=== PATIENT | male | born 1935 | race Caucasian/White ===

== ENCOUNTER 2017-11-04 09:22 | Emergency (ER) | payer OTHER ==
[~2017-11-04] VITALS: Ht 177.8 cm; Wt 102.1 kg
[~2017-11-04 09:22] MED LIST: ALLO100; ALLO300 PO; ASPI325 PO; ATOR20 PO; CALCIT950 PO; CEPH500 PO; CRUTCH2 XX; CYAN1000 PO; ERGO50000 PO; ESOM20 PO; HYDMOR4 PO; IRBE150 PO; IRBE75; IRBHYD150 PO; LEVO750 PO; MELO7.5 PO; METO25ER PO; NIFE30ER PO; NITR.4SL SL; OXYACE5T PO; Omega 3 1,0001 EACH PO; POTA10T PO; PRED20 PO; PROM25 PO; Percocet 5-3251 EACH PO; SERT25 PO; TADA10TA; VYTORIN; WARF5 PO
[2017-11-04] MEDS ORDERED: BENZ100A PO (10:31)
== END 2017-11-04 10:47 | disposition home or self-care (01) ==
LOC: ER 09:22
DX: R05 Cough (principal); R06.02 Shortness of breath; I48.91 Unspecified atrial fibrillation; J44.9 Chronic obstructive pulmonary disease, unspecified; I10 Essential (primary) hypertension; I25.10 Atherosclerotic heart disease of native coronary artery without angina pectoris; E78.5 Hyperlipidemia, unspecified; Z88.0 Allergy status to penicillin; Z88.5 Allergy status to narcotic agent; Z79.899 Other long term (current) drug therapy; Z79.82 Long term (current) use of aspirin; Z87.891 Personal history of nicotine dependence
CPT/HCPCS: 71046

== ENCOUNTER 2018-11-02 13:31 | Emergency (ER) | payer OTHER ==
[~2018-11-02] VITALS: Ht 182.9 cm; Wt 90.7 kg
[~2018-11-02 13:31] MED LIST changes: +BENZ100A PO; -CYAN1000 PO; +CYAN500 PO; -ERGO50000 PO; +IRBESARTAN-HCT1 EACH PO; -IRBHYD150 PO; +VITAMIN D5000 UNIT PO
[2018-11-02 14:02] LABS: BASOPHILS ABSOLUTE AUTO 0.02 K/mm3 (0.00-0.23); BASOPHILS PERCENT AUTO 0 % (0-2); EOSINOPHILS ABSOLUTE AUTO 0.09 K/mm3 (0.00-0.68); EOSINOPHILS PERCENT AUTO 1 % (0-6); Hematocrit 37.1 % (37.0-53.0); Hemoglobin 12.9 g/dL (13.5-17.5); IMMATURE GRAN ABSOLUTE AUTO 0.03 K/mm3 (0.00-0.10); IMMATURE GRAN PERCENT AUTO 0 % (0-1); LYMPHOCYTES ABSOLUTE AUTO 1.32 K/mm3 (0.84-5.20); LYMPHOCYTES PERCENT AUTO 17 % (21-46); MONOCYTES ABSOLUTE AUTO 0.66 K/mm3 (0.16-1.47); MONOCYTES PERCENT AUTO 8 % (4-13); Mean Corpuscular HGB 33.3 pg (26.0-34.0); Mean Corpuscular HGB Conc 34.8 g/dL (31.5-36.5); Mean Corpuscular Volume 96 fL (80-100); Mean Platelet Volume 10.6 fL (9.1-12.4); NEUTROPHILS ABSOLUTE AUTO 5.89 K/mm3 (1.96-9.15); NEUTROPHILS PERCENT AUTO 74 % (41-73); Platelet Count 126 K/mm3 (150-400); RDW Coefficient Variation 13.8 % (11.7-14.2); RDW Standard Deviation 48.8 fL (35.1-46.3); Red Blood Cell Count 3.87 M/mm3 (4.30-5.90); White Blood Cell Count 8.01 K/mm3 (4.00-11.30)
[2018-11-02 14:31] LABS: Albumin, Blood 3.8 g/dL (3.4-5.0); Albumin/Globulin Ratio 1.6 (0.8-1.8); Bilirubin, Total 1.5 mg/dL (0.1-1.0); Bun/Creatinine Ratio 24.4 (12.0-20.0); Calcium, Blood 8.8 mg/dL (8.5-10.1); Creatinine, Blood 1.23 mg/dL (0.60-1.20); Globulin, Blood 2.4 g/dL (2.2-4.0); Potassium, Blood 3.7 mmol/L (3.5-5.5); Total Protein, Blood 6.2 g/dL (6.4-8.2)
[2018-11-02] MEDS ORDERED: METF500C PO (16:21)
[2018-11-02] MEDS ORDERED: OXYC10TA19 PO (16:22)
[2018-11-02] MEDS ORDERED: CLOP75 PO (16:22)
[2018-11-02] MEDS ORDERED: FURO20 PO (16:23)
== END 2018-11-02 19:30 | disposition short-term general hospital (02) ==
LOC: ER 13:31
PROVIDERS: Emergency Medicine
DX: S00.03XA Contusion of scalp, initial encounter (principal); G62.9 Polyneuropathy, unspecified; W01.198A Fall on same level from slipping, tripping and stumbling with subsequent striking against other object, initial encounter; Z88.0 Allergy status to penicillin; Z88.5 Allergy status to narcotic agent; Z79.899 Other long term (current) drug therapy; Z79.82 Long term (current) use of aspirin; I48.91 Unspecified atrial fibrillation; Z87.891 Personal history of nicotine dependence
CPT/HCPCS: 36415; 70450; 72125; 72141; 80053; 84484; 85025; 93005; 93010; 96374; 96375; 96376; 99285-25; J1170; J2405

== ENCOUNTER 2019-01-18 12:39 | Emergency (ER) | payer OTHER ==
[~2019-01-18] VITALS: Ht 177.8 cm; Wt 84.8 kg
[~2019-01-18 12:39] MED LIST changes: +CLOP75 PO; +FURO20 PO; +METF500C PO; +OXYC10TA19 PO
[2019-01-18 13:25] LABS: BASOPHILS ABSOLUTE AUTO 0.02 K/mm3 (0.00-0.23); BASOPHILS PERCENT AUTO 0 % (0-2); EOSINOPHILS ABSOLUTE AUTO 0.12 K/mm3 (0.00-0.68); EOSINOPHILS PERCENT AUTO 2 % (0-6); Hematocrit 36.7 % (37.0-53.0); Hemoglobin 12.4 g/dL (13.5-17.5); IMMATURE GRAN ABSOLUTE AUTO 0.03 K/mm3 (0.00-0.10); IMMATURE GRAN PERCENT AUTO 0 % (0-1); LYMPHOCYTES ABSOLUTE AUTO 0.79 K/mm3 (0.84-5.20); LYMPHOCYTES PERCENT AUTO 11 % (21-46); MONOCYTES ABSOLUTE AUTO 0.56 K/mm3 (0.16-1.47); MONOCYTES PERCENT AUTO 8 % (4-13); Mean Corpuscular HGB 32.5 pg (26.0-34.0); Mean Corpuscular HGB Conc 33.8 g/dL (31.5-36.5); Mean Corpuscular Volume 96 fL (80-100); Mean Platelet Volume 10.1 fL (9.1-12.4); NEUTROPHILS ABSOLUTE AUTO 5.53 K/mm3 (1.96-9.15); NEUTROPHILS PERCENT AUTO 79 % (41-73); Platelet Count 152 K/mm3 (150-400); RDW Coefficient Variation 14.4 % (11.7-14.2); RDW Standard Deviation 50.5 fL (35.1-46.3); Red Blood Cell Count 3.82 M/mm3 (4.30-5.90); White Blood Cell Count 7.05 K/mm3 (4.00-11.30)
[2019-01-18 13:58] LABS: Source, Urine Clean Catch
[2019-01-18 14:01] LABS: Bilirubin, Urine Neg (Neg); Blood, Urine 5+ (Neg); Glucose Qualitative, Urine Neg (Neg); Ketones, Urine Neg (Neg); Leukocyte Esterase, Urine 3+ (Neg); Nitrite, Urine Neg (Neg); Protein, Urine 2+ (Neg); Specific Gravity, Urine 1.015 (1.003-1.022); Urobilinogen, Urine NORM (Normal)
[2019-01-18 14:08] LABS: Appearance, Urine Clear (Clear); Bacteria Few /hpf; Color, Urine Yellow (P-Yellow); Red Blood Cells, Urine 25-50 /hpf (0-2); Squamous Epithelial Cells Not Seen /hpf (Few); White Blood Cells, Urine 25-50 /hpf (0-5)
[2019-01-18 14:58] LABS: Alanine Aminotransfer (ALT/SGP 21 U/L (12-78); Albumin, Blood 3.4 g/dL (3.4-5.0); Albumin/Globulin Ratio 1.2 (0.8-1.8); Alk Phos 61 U/L (50-136); Anion Gap 9 mmol/L (6-16); Aspartate Aminotrans (AST/SGOT 12 U/L (12-37); Bilirubin, Total 0.7 mg/dL (0.1-1.0); Blood Urea Nitrogen 26 mg/dL (8-24); Bun/Creatinine Ratio 24.1 (12.0-20.0); CO2, Blood 24 mmol/L (21-32); Chloride, Blood 102 mmol/L (98-108); Creatinine, Blood 1.08 mg/dL (0.60-1.20); Globulin, Blood 2.8 g/dL (2.2-4.0); Glomerular Filtration Rate >60 (60-); Glucose, Blood 114 mg/dL (70-99); Potassium, Blood 4.1 mmol/L (3.5-5.5); Sodium, Blood 135 mmol/L (136-145); Total Protein, Blood 6.2 g/dL (6.4-8.2)
[2019-01-18] MEDS ORDERED: Zofran4 MG PO (16:08)
[2019-01-18] MEDS ORDERED: Flomax0.4 MG PO ×2 (16:08→16:39)
[2019-01-18] MEDS ORDERED: Percocet 5-3251 EACH PO ×2 (16:08→16:39)
[2019-01-18] MEDS ORDERED: Cipro500 MG PO ×2 (16:10→16:39)
[2019-01-18] MEDS ORDERED: ONDA4ODT MM (16:39)
== END 2019-01-18 17:34 | disposition home or self-care (01) ==
LOC: ER 12:39
PROVIDERS: Emergency Medicine
DX: N13.2 Hydronephrosis with renal and ureteral calculous obstruction (principal); Z88.0 Allergy status to penicillin; Z88.5 Allergy status to narcotic agent; Z79.899 Other long term (current) drug therapy; Z79.82 Long term (current) use of aspirin; Z79.84 Long term (current) use of oral hypoglycemic drugs; I48.91 Unspecified atrial fibrillation; Z87.891 Personal history of nicotine dependence
CPT/HCPCS: 36415; 74176; 80053; 81001; 85025; 87077; 87086; 87186; 99284-25; J2405; J3010; J7030

== ENCOUNTER 2019-09-27 11:14 | Emergency (ER) | payer OTHER ==
[~2019-09-27] VITALS: Ht 177.8 cm; Wt 81.7 kg
[~2019-09-27 11:14] MED LIST changes: +Cipro500 MG PO; +Flomax0.4 MG PO; +ONDA4ODT MM; +Zofran4 MG PO
[2019-09-27] MEDS ORDERED: OXYC10TA19 PO (12:16)
== END 2019-09-27 12:40 | disposition home or self-care (01) ==
LOC: ER 11:14
DX: S83.91XA Sprain of unspecified site of right knee, initial encounter (principal); S73.101A Unspecified sprain of right hip, initial encounter; M17.11 Unilateral primary osteoarthritis, right knee; Z88.0 Allergy status to penicillin; Z88.5 Allergy status to narcotic agent; Z79.82 Long term (current) use of aspirin; Z79.84 Long term (current) use of oral hypoglycemic drugs; Z79.899 Other long term (current) drug therapy; I48.91 Unspecified atrial fibrillation; Z87.891 Personal history of nicotine dependence; W01.0XXA Fall on same level from slipping, tripping and stumbling without subsequent striking against object, initial encounter
CPT/HCPCS: 73502; 73562-RT; 99283-25

== ENCOUNTER 2020-09-15 06:32 | Day surgery (SDC) | payer OTHER ==
[~2020-09-15] VITALS: Ht 177.8 cm; Wt 86.0 kg
== END 2020-09-15 09:51 | disposition home or self-care (01) ==
LOC: ORSCSDS 06:32
PROC: 01N54ZZ Release Median Nerve, Percutaneous Endoscopic Approach (ICD-10-PCS; principal; 2020-09-15)
PROC: 01N40ZZ Release Ulnar Nerve, Open Approach (ICD-10-PCS; principal; 2020-09-15)
DX: G56.21 Lesion of ulnar nerve, right upper limb (principal); G56.01 Carpal tunnel syndrome, right upper limb; I10 Essential (primary) hypertension; I48.91 Unspecified atrial fibrillation; I25.10 Atherosclerotic heart disease of native coronary artery without angina pectoris; I25.2 Old myocardial infarction; G47.33 Obstructive sleep apnea (adult) (pediatric); K21.9 Gastro-esophageal reflux disease without esophagitis; E78.5 Hyperlipidemia, unspecified; Z79.899 Other long term (current) drug therapy; Z79.82 Long term (current) use of aspirin
CPT/HCPCS: 82947; J0171; J0690; J1100; J2250; J2370; J2405; J2704; J3010

== ENCOUNTER → 2021-04-01 | Outpatient (CLI) | payer OTHER | LOC: LAB SHORT 09:30 | DX: E11.9 Type 2 diabetes mellitus without complications (principal); Z88.0 Allergy status to penicillin; Z88.5 Allergy status to narcotic agent | CPT/HCPCS: 82043 ==

== ENCOUNTER 2022-10-31 09:27 | Day surgery (SDC) | payer OTHER ==
[~2022-10-31] VITALS: Ht 177.8 cm; Wt 77.1 kg
[2022-10-31] MEDS ORDERED: GABA100 (09:53)
[2022-10-31] MEDS ORDERED: FISH OIL 1,2001 EAC7 (09:53)
[2022-10-31] MEDS ORDERED: ASPI81CH (09:53)
[2022-10-31 12:45] VITALS: BP 110/66
== END 2022-10-31 12:19 | disposition home or self-care (01) ==
LOC: ORSCSDS 09:27
PROVIDERS: Internal Medicine Gastroenterology
PROC: 0DBK8ZX Excision of Ascending Colon, Via Natural or Artificial Opening Endoscopic, Diagnostic (ICD-10-PCS; principal; 2022-10-31 11:00)
PROC: 0DBL8ZX Excision of Transverse Colon, Via Natural or Artificial Opening Endoscopic, Diagnostic (ICD-10-PCS; principal; 2022-10-31 11:00)
DX: R93.3 Abnormal findings on diagnostic imaging of other parts of digestive tract (principal); D12.2 Benign neoplasm of ascending colon; D12.3 Benign neoplasm of transverse colon; K57.30 Diverticulosis of large intestine without perforation or abscess without bleeding; N18.31 Chronic kidney disease, stage 3a; K52.9 Noninfective gastroenteritis and colitis, unspecified; G47.33 Obstructive sleep apnea (adult) (pediatric); E11.9 Type 2 diabetes mellitus without complications; I48.0 Paroxysmal atrial fibrillation; I25.10 Atherosclerotic heart disease of native coronary artery without angina pectoris; E78.5 Hyperlipidemia, unspecified; Z79.82 Long term (current) use of aspirin; Z79.899 Other long term (current) drug therapy
CPT/HCPCS: 88305; J2704; J7120

== ENCOUNTER 2023-06-08 16:38 | Observation (INO) | payer OTHER ==
[~2023-06-08] VITALS: Ht 177.8 cm; Wt 74.8 kg
[~2023-06-08 16:38] MED LIST changes: +ASPI81CH; -ATOR20 PO; +ATOR40TA PO; +FISH OIL 1,2001 EAC7; -FURO20 PO; +GABA100
[2023-06-08 17:35] LABS: Calcium, Ionized (POC) 1.18 mmol/L (1.10-1.46); Chloride (POC) 102 mmol/L (98-108); Creatinine (POC) 2.1 mg/dL (0.8-1.3); Glucose (ISTAT POC) 136 mg/dL (70-99); Hemoglobin (POC) 11.6 g/dL (13.5-17.5); Potassium (POC) 4.2 mmol/L (3.5-5.5); Sodium (POC) 138 mmol/L (135-148); Total CO2 (POC) 28 mmol/L (21-32)
[2023-06-08 17:41] LABS: BASOPHILS ABSOLUTE AUTO 0.02 K/mm3 (0.00-0.23); BASOPHILS PERCENT AUTO 0 % (0-2); EOSINOPHILS ABSOLUTE AUTO 0.04 K/mm3 (0.00-0.68); EOSINOPHILS PERCENT AUTO 1 % (0-6); IMMATURE GRAN ABSOLUTE AUTO 0.03 K/mm3 (0.00-0.10); IMMATURE GRAN PERCENT AUTO 0 % (0-1); LYMPHOCYTES ABSOLUTE AUTO 0.98 K/mm3 (0.84-5.20); LYMPHOCYTES PERCENT AUTO 14 % (21-46); MONOCYTES ABSOLUTE AUTO 0.52 K/mm3 (0.16-1.47); MONOCYTES PERCENT AUTO 7 % (4-13); Mean Corpuscular HGB 31.9 pg (26.0-34.0); Mean Corpuscular HGB Conc 33.3 g/dL (31.5-36.5); Mean Corpuscular Volume 96 fL (80-100); Mean Platelet Volume 10.5 fL (9.1-12.4); NEUTROPHILS ABSOLUTE AUTO 5.62 K/mm3 (1.96-9.15); NEUTROPHILS PERCENT AUTO 78 % (41-73); Platelet Count 134 K/mm3 (150-400); RDW Coefficient Variation 14.1 % (11.7-14.2); RDW Standard Deviation 49.5 fL (35.1-46.3); Red Blood Cell Count 3.76 M/mm3 (4.30-5.90); White Blood Cell Count 7.21 K/mm3 (4.00-11.30)
[2023-06-08 17:58] LABS: Albumin, Blood 3.4 g/dL (3.4-5.0); Albumin/Globulin Ratio 1.1 (0.8-1.8); Bilirubin, Total 1.1 mg/dL (0.1-1.0); Bun/Creatinine Ratio 19.2 (12.0-20.0); Calcium, Blood 8.8 mg/dL (8.5-10.1); Creatinine, Blood 1.82 mg/dL (0.60-1.20); Globulin, Blood 3.1 g/dL (2.2-4.0); Potassium, Blood 4.1 mmol/L (3.5-5.5); Total Protein, Blood 6.5 g/dL (6.4-8.2)
[2023-06-08 19:48] LABS: Influenza A, PCR NEGATIVE (NEGATIVE); Influenza B, PCR NEGATIVE (NEGATIVE); Resp Syncytial Virus, PCR NEGATIVE (NEGATIVE); SARS-Cov-2 (COVID-19) PCR, MMC NEGATIVE (NEGATIVE)
[2023-06-08] MEDS ORDERED: Neurontin800 MG PO (19:55)
[2023-06-08 20:21] LABS: Anti-Xa UFH, PHA Monitoring <0.10 IU/mL; International Normalized Ratio 1.09; Prothrombin Time Results 11.4 Sec (9.7-11.5)
[2023-06-08 20:44] LABS: Source, Urine Clean Catch
[2023-06-08 20:47] LABS: Appearance, Urine Clear (Clear); Bilirubin, Urine Neg (Neg); Blood, Urine 2+ (Neg); Glucose Qualitative, Urine Neg (Neg); Ketones, Urine Neg (Neg); Leukocyte Esterase, Urine 3+ (Neg); Nitrite, Urine Neg (Neg); Protein, Urine Neg (Neg); Specific Gravity, Urine 1.015 (1.003-1.022); Urobilinogen, Urine NORM (Normal)
[2023-06-08 20:52] LABS: Color, Urine Pale Yellow (P-Yellow)
[2023-06-08 20:53] LABS: Hyaline Casts 0-2 /lpf (0-2)
[2023-06-08 20:54] LABS: Bacteria Mod /hpf; Squamous Epithelial Cells Rare /hpf (Few)
[2023-06-08 22:54] VITALS: BP 105/88
[2023-06-09 00:17] VITALS: BP 114/54
[2023-06-09 03:50] VITALS: BP 99/53
[2023-06-09 04:03] LABS: Hematocrit 35.1 % (37.0-53.0); Hemoglobin 11.8 g/dL (13.5-17.5); Mean Corpuscular HGB 32.1 pg (26.0-34.0); Mean Corpuscular HGB Conc 33.6 g/dL (31.5-36.5); Mean Corpuscular Volume 95 fL (80-100); Mean Platelet Volume 10.6 fL (9.1-12.4); Platelet Count 115 K/mm3 (150-400); Red Blood Cell Count 3.68 M/mm3 (4.30-5.90); White Blood Cell Count 8.11 K/mm3 (4.00-11.30)
[2023-06-09 04:16] LABS: Bun/Creatinine Ratio 23.4 (12.0-20.0); Creatinine, Blood 1.41 mg/dL (0.60-1.20); Potassium, Blood 3.7 mmol/L (3.5-5.5)
--- NOTE | 2023-06-09 05:41 | NUR ---
END OF SHIFT NOTE: PT IS A/OX4 AND COOPERATIVE WITH CARE. IRREGULAR RYTHM UNDETERMINED ON EKG. PT SPO2 >90% ON RA. NPO WITH Q6 CBGS. CC PLACED FOR PATIENT COMFORT AND ABILITY TO GET SOME REST. PT WHEELCHAIR BOUND AT BASELINE. REDNESS ON COCCYX WITH MEPILEX PLACED TO PREVENT SKIN BREAKDOWN. PT DENIES PAIN OR SOB. NO NEEDS AT THIS TIME. CALL LIGHT IN REACH AND BED IN LOWEST POSITION.
[2023-06-09 07:23] VITALS: BP 106/64
[2023-06-09 09:25] VITALS: BP 103/54
[2023-06-09] MEDS ORDERED: CEFD300 PO (12:09)
[2023-06-09] MEDS ORDERED: FURO20 PO (12:41)
--- NOTE | 2023-06-09 12:47 | NUR ---
Initial palliative care consult: Chase is an 87 year old gentleman who was admitted with chest pain yesterday. He has a history of CAD with stent placement around 2011, CKD stage 3, HTN, HLD, BPH, gout, anemia, nephrolithiasis, DM type 2, depression and LEONID. He is laying in bed with his Danielle and dtr Sharon at the bedside. Requested by staff to assist with completing new POLST form to reflect pt's current wishes. Met with pt and and dtr in room. Discussed POLST form and his wishes. His , Danielle, would also like to update her POLST form. Both Raphael and his chose DNR with limited interventions for their POLST forms. Dtr Sharon signed both POLST forms as Raphael and Danielle requested that she sign. Answered questions about the POLST forms and discussed AD. Dtr Sharon and pt and request to take home AD forms to read and complete at home. Sharon would also like to complete an AD. She lives in [place], so she will go online to see if [place] has a specific AD form or find a generic AD form. After all questions were answered pt and family appreciative of care and assistance with completing forms. Updated nursing and Dr. Kc states he will come sign the POLST. Danielle's POLST sent with Sharon to take to Danielle's PCP to sign. Nursing reports plan is for discharge home today. Nursing will fax a copy of pt's completed POLST to the [facility] POLST registry per pt's request.
[2023-06-09] MEDS ORDERED: NITROGLYCERIN0.4 M3 SL (13:04)
[2023-06-09 13:17] VITALS: BP 93/55
--- NOTE | 2023-06-09 14:49 | NUR ---
DISCHARGE NOTE PT A&OX4, VSS. PT DENIES PAIN. HEP GTT DISCONTINUED PER THIS AM. NS TURNED OFF FOR DISCHARGE. MD ESPARZA IN ROOM THIS AM. PT REFUSED ANGIO, OPTED TO GO HOME, MED MANAGEMENT. MD JEFFERY IN ROOM AFTER LUNCH TO REVIEW DISCHARGE ORDERS. DISCHARGE PAPERWORK REVIEW WITH PATIENT AND FAMILY. NEW MEDICATIONS SENT TO [facility]. BILAT AC IV'S REMOVED. TELEMETRY REMOVED. CONDOM CATH REMOVED. PT HELPED DRESS. PT WHEELED TO PRIVATE VEHICLE WITH BELONGINGS, DAUGHTER, AND .
== END 2023-06-09 13:23 | disposition home or self-care (01) ==
LOC: ER 16:38 → PCU 19:39
PROVIDERS: Emergency Medicine; Nurse Practitioner Acute Care; Student in an Organized Health Care Education/Training Program; ADMIT Internal Medicine
DX: I25.118 Atherosclerotic heart disease of native coronary artery with other forms of angina pectoris (principal); I12.9 Hypertensive chronic kidney disease with stage 1 through stage 4 chronic kidney disease, or unspecified chronic kidney disease; E11.22 Type 2 diabetes mellitus with diabetic chronic kidney disease; N18.30 Chronic kidney disease, stage 3 unspecified; G47.33 Obstructive sleep apnea (adult) (pediatric); F32.9 Major depressive disorder, single episode, unspecified; E78.5 Hyperlipidemia, unspecified; M10.9 Gout, unspecified; D50.9 Iron deficiency anemia, unspecified; N40.0 Benign prostatic hyperplasia without lower urinary tract symptoms; N17.9 Acute kidney failure, unspecified; I48.0 Paroxysmal atrial fibrillation; E11.40 Type 2 diabetes mellitus with diabetic neuropathy, unspecified; Z79.82 Long term (current) use of aspirin; Z79.899 Other long term (current) drug therapy; Z99.89 Dependence on other enabling machines and devices; Z88.5 Allergy status to narcotic agent; Z88.0 Allergy status to penicillin
CPT/HCPCS: 0241U; 36415; 71045; 80047; 80048; 80053; 81001; 82947; 83690; 83735; 83880; 84484; 85014; 85025; 85027; 85520; 85610; 85730; 87086; 93005; 93010; 93306; 96365; 96366; 99285-25; A9270; G0378; J1644; J7030

== ENCOUNTER 2023-11-08 03:43 | Inpatient (IN) | payer OTHER ==
[~2023-11-08] VITALS: Ht 177.8 cm; Wt 85.2 kg
[2023-11-08] VITALS (10 sets, daily range): BP systolic 76–139; BP diastolic 46–111
[~2023-11-08 03:43] MED LIST changes: -ASPI81CH; +ASPI81CH PO; +CEFD300 PO; +FURO20 PO; +NITROGLYCERIN0.4 M3 SL; +Neurontin800 MG PO
[2023-11-08] MEDS ORDERED: NS 1,000 ML IV SCH ×2 (04:55→09:00)
[2023-11-08] MEDS ORDERED: FentaNYL Citrate 50 MCG/ML 2 ML Injection IV ONE (05:00)
[2023-11-08 05:02] LABS: Source, Urine Foley catheter
[2023-11-08 05:04] LABS: BASOPHILS ABSOLUTE AUTO 0.01 K/mm3 (0.00-0.23); BASOPHILS PERCENT AUTO 0 % (0-2); EOSINOPHILS ABSOLUTE AUTO 0.05 K/mm3 (0.00-0.68); EOSINOPHILS PERCENT AUTO 1 % (0-6); Hematocrit 35.5 % (37.0-53.0); Hemoglobin 11.5 g/dL (13.5-17.5); IMMATURE GRAN ABSOLUTE AUTO 0.02 K/mm3 (0.00-0.10); IMMATURE GRAN PERCENT AUTO 0 % (0-1); LYMPHOCYTES ABSOLUTE AUTO 0.64 K/mm3 (0.84-5.20); LYMPHOCYTES PERCENT AUTO 10 % (21-46); MONOCYTES ABSOLUTE AUTO 0.59 K/mm3 (0.16-1.47); MONOCYTES PERCENT AUTO 9 % (4-13); Mean Corpuscular HGB 32.4 pg (26.0-34.0); Mean Corpuscular HGB Conc 32.4 g/dL (31.5-36.5); Mean Corpuscular Volume 100 fL (80-100); Mean Platelet Volume 10.4 fL (9.1-12.4); NEUTROPHILS ABSOLUTE AUTO 5.22 K/mm3 (1.96-9.15); NEUTROPHILS PERCENT AUTO 80 % (41-73); Platelet Count 120 K/mm3 (150-400); RDW Coefficient Variation 14.2 % (11.7-14.2); RDW Standard Deviation 52.5 fL (35.1-46.3); Red Blood Cell Count 3.55 M/mm3 (4.30-5.90); White Blood Cell Count 6.53 K/mm3 (4.00-11.30)
[2023-11-08 05:36] LABS: Albumin, Blood 3.6 g/dL (3.4-5.0); Albumin/Globulin Ratio 1.2 (0.8-1.8); Bilirubin, Total 1.6 mg/dL (0.1-1.0); Bun/Creatinine Ratio 20.7 (12.0-20.0); Calcium, Blood 8.6 mg/dL (8.5-10.1); Creatinine, Blood 1.79 mg/dL (0.60-1.20); Globulin, Blood 2.9 g/dL (2.2-4.0); Potassium, Blood 4.5 mmol/L (3.5-5.5); Total Protein, Blood 6.5 g/dL (6.4-8.2)
[2023-11-08 05:55] LABS: Appearance, Urine Cloudy (Clear); Bilirubin, Urine Neg (Neg); Blood, Urine 5+ (Neg); Color, Urine Amber (P-Yellow); Glucose Qualitative, Urine Neg (Neg); Ketones, Urine Neg (Neg); Leukocyte Esterase, Urine 2+ (Neg); Nitrite, Urine Pos (Neg); Protein, Urine 3+ (Neg); Urobilinogen, Urine NORM (Normal)
[2023-11-08 06:01] LABS: Bacteria Many /hpf; Red Blood Cells, Urine TNTC /hpf (0-2); Squamous Epithelial Cells Few /hpf (Few); White Blood Cells, Urine 25-50 /hpf (0-5)
[2023-11-08] MEDS ORDERED: CefTRIAXone Sodium 1,000 MG in NS 50 ML IV ONE (06:05)
[2023-11-08] MEDS ORDERED: CEPH500 PO (06:06)
[2023-11-08] MEDS ORDERED: Magnesium Hydroxide Conc 10 ML UDC PO PRN (08:10)
[2023-11-08] MEDS ORDERED: Acetaminophen 325 MG TABLET PO PRN (08:15)
[2023-11-08 09:06] LABS: International Normalized Ratio 1.03
[2023-11-08] MEDS ORDERED: NS 250 ML IV ONE (14:39)
[2023-11-08] MEDS ORDERED: Midazolam HCl 1MG / ML 2ML Vial ONE (17:15)
[2023-11-08] MEDS ORDERED: NS 500 ML IV ONE (17:16)
[2023-11-08] MEDS ORDERED: FentaNYL Citrate 50 MCG/ML 2 ML Injection ONE (17:16)
--- NOTE | 2023-11-08 18:37 | NUR ---
SHIFT SUMMARY PATIENT ADMITTED TO MEDICAL FLOOR WITH HYDRONEPHROSIS. PATIENT TAKEN TO PIANO REFINISHER AT END OF SHIFT FOR NEPHROSTOMY TUBE PLACEMENT. PATIENT'S MENTATION IMPROVED THROUGHOUT THE SHIFT. FLUIDS INFUSING AND PATIENT NPO FOR PROCEDURE. DAUGHTER AND PRESENT EARLIER IN SHIFT. DAUGHTER UPDATED VIA PHONE.
[2023-11-08] MEDS ORDERED: Gabapentin 300 MG Cap PO SCH (21:00)
[2023-11-08] MEDS ORDERED: NS 1,000 ML IV ONE (21:20)
[2023-11-08] MEDS ORDERED: IRBESARTAN75 M3 PO (21:40)
[2023-11-08] MEDS ORDERED: KLOR-CON 1010 ME9 PO (21:41)
[2023-11-08] MEDS ORDERED: ALLO300 PO (21:41)
[2023-11-08] MEDS ORDERED: TAMSULOSIN HCL0.4 M1 PO (21:42)
[2023-11-08] MEDS ORDERED: METOPROLOL SUCC25 MG PO (21:43)
--- NOTE | 2023-11-08 23:44 | NUR ---
TRANSFER PATIENT TRANSFERED FROM PCU AT 2355. PATIENT LAYING IN BED, LUNGS BILATERALLY CLEAR, PUPILS REACTIVE, IV 20G ON LEFT FOREARM, PEDAL AND RADIAL PULSE PRESENT AND STRONG. CALL LIGHT WITHIN REACH
[2023-11-09] VITALS (57 sets, daily range): BP systolic 70–128; BP diastolic 42–105
[2023-11-09 03:45] LABS: BASOPHILS ABSOLUTE AUTO 0.01 K/mm3 (0.00-0.23); BASOPHILS PERCENT AUTO 0 % (0-2); EOSINOPHILS PERCENT AUTO 0 % (0-6); Hematocrit 30.9 % (37.0-53.0); Hemoglobin 10.2 g/dL (13.5-17.5); IMMATURE GRAN ABSOLUTE AUTO 0.02 K/mm3 (0.00-0.10); IMMATURE GRAN PERCENT AUTO 0 % (0-1); LYMPHOCYTES PERCENT AUTO 4 % (21-46); MONOCYTES ABSOLUTE AUTO 0.63 K/mm3 (0.16-1.47); MONOCYTES PERCENT AUTO 7 % (4-13); Mean Corpuscular HGB 32.9 pg (26.0-34.0); Mean Corpuscular Volume 100 fL (80-100); NEUTROPHILS ABSOLUTE AUTO 8.32 K/mm3 (1.96-9.15); NEUTROPHILS PERCENT AUTO 89 % (41-73); Platelet Count 105 K/mm3 (150-400); RDW Coefficient Variation 14.6 % (11.7-14.2); RDW Standard Deviation 53.1 fL (35.1-46.3); White Blood Cell Count 9.38 K/mm3 (4.00-11.30)
[2023-11-09 04:06] LABS: Albumin, Blood 2.8 g/dL (3.4-5.0); Bilirubin, Total 0.9 mg/dL (0.1-1.0); Bun/Creatinine Ratio 20.2 (12.0-20.0); Calcium, Blood 7.4 mg/dL (8.5-10.1); Creatinine, Blood 1.88 mg/dL (0.60-1.20); Globulin, Blood 2.8 g/dL (2.2-4.0); Potassium, Blood 4.2 mmol/L (3.5-5.5); Total Protein, Blood 5.6 g/dL (6.4-8.2)
[2023-11-09] MEDS ORDERED: Vancomycin HCL 1,500 MG in NS 250 ML IV ONE (06:00)
--- NOTE | 2023-11-09 06:22 | NUR ---
SHIFT SUMMARY PATIENT STAYED IN BED AND SLEPT FOR A LITTLE WHILE. TEMP WAS 101.2 GAVE TYLENOL CHECKED IN 20 MINUTES DOWN TO 100.4. HAD A NEPHROSTOMY TUBE PLACED ON 11/08/23, HAS VELÁSQUEZ URINE IS ORANGE BROWNISH URINE. DAUGHTER KATINA IS HEALTH PROXY, GRAM POSTIVE COCCI WITH CLUSTERS ROCEPHIN DR. MANRIQUE AWARE SAID ROCEPHIN SCHEDULED IN AM. B/P'S HAS BEEN LOW SBP IN 70-90'S DR. MANRIQUE AWARE SAID TO GIVE 500MLS NS BOLUS AND GAVE ORDER FOR LEVOPHED IF NEEDED. WILL CONTINUE TO MONITOR UNTIL REPORT IS GIVING TO ONCOMING NURSE. CALL LIGHT WITHIN REACH.
[2023-11-09] MEDS ORDERED: NS 500 ML IV SCH (06:30)
[2023-11-09] MEDS ORDERED: Lactated Ringer's 1,000 ML IV SCH (07:00)
--- NOTE | 2023-11-09 07:00 | NUR ---
ASSUMPTION OF CARE PT RECEIVING NS 150ML/HR. HE IS A&OX3 WITH PLEASANT AFFECT. HE IS ON RA, DENIES SOB. SINUS ON MONITOR WITH RATE IN 70S. BP SOFT BUT MAP >65. L NEPHROSTOMY SITE WNL, DRESSING C/D/I. DRAINING THIN RED FLUID. PT C/O MILD L SIDED DISCOMFORT AND DENIES ABDOMINAL DISCOMFORT. VELÁSQUEZ PATENT AND DRAINING TO GRAVITY. BED IN LOW POSITION, BED ALARM ON AND CALL LIGHT WITHIN REACH.
[2023-11-09] MEDS ORDERED: Enoxaparin 40 MG/0.4 ML SYR SC SCH (09:00)
[2023-11-09] MEDS ORDERED: Tamsulosin HCl 0.4 MG Cap PO SCH (09:00)
[2023-11-09] MEDS ORDERED: CefTRIAXone Sodium 1,000 MG in NS 100 ML IV SCH (09:00)
[2023-11-09] MEDS ORDERED: CefTRIAXone Sodium 2,000 MG in NS 100 ML IV SCH (09:00)
[2023-11-09] MEDS ORDERED: Atorvastatin 40 MG Tab PO SCH (09:00)
[2023-11-09] MEDS ORDERED: Aspirin 81 MG Chew PO SCH (09:00)
[2023-11-09] MEDS ORDERED: Lactobacil 2-S.Thermo-Bifido 1 1 Cap PO SCH (09:00)
[2023-11-09] MEDS ORDERED: Clopidogrel Bisulfate 75 MG Tab PO SCH (11:14)
--- NOTE | 2023-11-09 12:45 | NUR ---
PLAVIX ORDER RECEIVED FROM HOSPITALIST TO RESTART PLAVIX. PT EXPRESSED CONCERN REGARDING THINKING DR LANDIS SAID TO NOT TAKE IT ANYMORE. DR LANDIS NOTIFIED AND CONFIRMED PT SHOULD RESTART PLAVIX. ADMINISTERED PER EMAR.
[2023-11-09 14:33] LABS: Bun/Creatinine Ratio 21.6 (12.0-20.0); Calcium, Blood 6.9 mg/dL (8.5-10.1); Creatinine, Blood 1.76 mg/dL (0.60-1.20); Potassium, Blood 4.4 mmol/L (3.5-5.5)
--- NOTE | 2023-11-09 18:07 | NUR ---
SHIFT SUMMARY PT RECEIVING LR 150ML/HR. HE IS A&OX3 WITH PLEASANT AFFECT. HE DOES HAVE INTERMITTENT EPISODES OF CONFUSION BUT IS EASILY REDIRECTABLE. HE ASSISTS WITH CARE ABLE. HE SAT IN THE RECLINER FOR A COUPLE HOURS THIS AFTERNOON AND IS A 2 PERSON ASSIST. HE REMAINS ON RA WITH SPO2 >95%. HE DOES BECOME DYSPNEIC WITH EXCERTION. NSR ON MONITOR WITH RATE IN 70S-80S. BP STABLE THROUGHOUT THE DAY. PT HAS A L NEPHROSTOMY THAT IS DRAINING THIN RED FLUID, BEGINNING TO HAVE SMALL AMOUNT OF YELLOW-TINGED OUTPUT. SHIFT OUTPUT OF 200ML. PT HAD 600ML DARK ORANGE OUTPUT, VELÁSQUEZ REMOVED THIS AFTERNOON. PT'S DAUGHTER AND VISITED THIS AM AND AFTERNOON, UPDATED ON PLAN OF CARE. PT IS PCU STATUS. BED IN LOW POSITION, BED ALARM ON, CALL LIGHT WITHIN REACH.
--- NOTE | 2023-11-09 21:00 | NUR ---
ASSUMED CARE CARE WAS ASSUMED OF PT AT 1900. PT A/O X3-4. ABLE TO ANSWER QUESTIONS APPROPRIATELY. PT ANXIOUS, ENDORSES PAIN TO RUQ/RLQ. REPOSITIONED PT AND MEDICATED PT PER EMAR FOR PAIN. PT ON RA, O2 SATS > 95%. CARDIAC MONITORING REFLECTS NSR, HR 70s. SBP 110s. PIV TO LAC AND JACQUELINE. LR INFUSING @ 150 mL/HR. LEFT NEPHROSTOMY IN PLACE, PATENT AND DRAINING TO GRAVITY. DRESSING C/D/I, DRAINING RED FLUID.
[2023-11-09 22:30] LABS: Vancomycin, Random 11.4 ug/mL
[2023-11-09] MEDS ORDERED: Vancomycin HCL 1,250 MG in NS 250 ML IV SCH (22:56)
[2023-11-10] VITALS (7 sets, daily range): BP systolic 90–129; BP diastolic 45–85
--- NOTE | 2023-11-10 00:19 | NUR ---
TRANSFER NOTE PT TRANSFERED TO PCU 4, REPORT GIVEN TO SAUL HENRY. NO ACUTE CHANGES FROM BEGINNING OF SHIFT. PT A/O X3. PT REMAINED ON RA, O2 SATS > 90%. CARDIAC MONITORING REFLECTS NSR, HR 70s. LEFT NEPHROSTOMY TUBE IN PLACE, CONTINUES TO DRAIN RED FLUID. DRESSING C/D/I. PT INCONTINENT OF URINE. LR INFUSING AT 150 mL/HR.
--- NOTE | 2023-11-10 00:55 | NUR ---
ASSUMPTION OF CARE/TRANSFER TO PCU Pt sleeping, easily arousable to verbal stimuli, oriented to self, location and situation, forgetful, sometimes repeats questions. Spo2 greater than 92% on room air, monitor shows sinus rhythm with occassional PAC's and PVC's, blood pressure stable. Pt denies chest pain or shortness of breath. Left nephrostomy tube site WNL, bloody drainage. Pt incontinent, new breif placed upon arrival to unit. Reddness noted to coccyx/sacral area, blanchable, skin intact, mepilex placed for prevention.
--- NOTE | 2023-11-10 02:01 | NUR ---
THIS RN TO ASSUME CARE FOR PRIMARY NURSE'S BREAK
[2023-11-10 04:10] LABS: BASOPHILS ABSOLUTE AUTO 0.01 K/mm3 (0.00-0.23); BASOPHILS PERCENT AUTO 0 % (0-2); EOSINOPHILS ABSOLUTE AUTO 0.01 K/mm3 (0.00-0.68); EOSINOPHILS PERCENT AUTO 0 % (0-6); Hematocrit 31.3 % (37.0-53.0); Hemoglobin 10.4 g/dL (13.5-17.5); IMMATURE GRAN ABSOLUTE AUTO 0.05 K/mm3 (0.00-0.10); IMMATURE GRAN PERCENT AUTO 1 % (0-1); LYMPHOCYTES ABSOLUTE AUTO 0.85 K/mm3 (0.84-5.20); LYMPHOCYTES PERCENT AUTO 8 % (21-46); MONOCYTES ABSOLUTE AUTO 0.92 K/mm3 (0.16-1.47); MONOCYTES PERCENT AUTO 9 % (4-13); Mean Corpuscular HGB 32.8 pg (26.0-34.0); Mean Corpuscular HGB Conc 33.2 g/dL (31.5-36.5); Mean Corpuscular Volume 99 fL (80-100); Mean Platelet Volume 10.9 fL (9.1-12.4); NEUTROPHILS ABSOLUTE AUTO 8.35 K/mm3 (1.96-9.15); NEUTROPHILS PERCENT AUTO 82 % (41-73); Platelet Count 105 K/mm3 (150-400); RDW Coefficient Variation 14.7 % (11.7-14.2); RDW Standard Deviation 53.5 fL (35.1-46.3); Red Blood Cell Count 3.17 M/mm3 (4.30-5.90); White Blood Cell Count 10.19 K/mm3 (4.00-11.30)
[2023-11-10 04:33] LABS: Bun/Creatinine Ratio 21.7 (12.0-20.0); Calcium, Blood 7.3 mg/dL (8.5-10.1); Creatinine, Blood 1.57 mg/dL (0.60-1.20); Potassium, Blood 4.4 mmol/L (3.5-5.5)
--- NOTE | 2023-11-10 06:00 | NUR ---
SHIFT SUMMARY Pt rested well throughout night, oriented to self, location, mild understanding of situation. Pt remains on room air with good spo2. Monitor shows sinus rhythm, stable BP. Pt incontinent of urine, but able to notify staff when attends need changed, uses call light appropriately. Nephrostomy site stable with red drainage into collection bag.
[2023-11-10] MEDS ORDERED: Enoxaparin 30 MG/0.3 ML SYR SC SCH (09:00)
[2023-11-10] MEDS ORDERED: Clopidogrel Bisulfate 75 MG Tab PO SCH (09:00)
[2023-11-10] MEDS ORDERED: Gabapentin 300 MG Cap PO SCH (14:00)
[2023-11-10] MEDS ORDERED: GABAPENTIN600 MG PO (17:51)
[2023-11-10] MEDS ORDERED: Cialis20 MG PO (17:53)
--- NOTE | 2023-11-10 18:46 | NUR ---
SHIFT SUMMARY: PT HAS BEEN A&Ox3-4, FORGETFUL AT TIMES, REPORTED ONE TIME SEEING OUTLINE OF A HORSE ON THE WALL THAT WAS NOT THERE. PT HAS BEEN COOPERATIVE W/CARE, ABLE TO MAKE NEEDS KNOWN. PT HAS DENIED SOB, O2 SATS >93% ON RA. PT DENIES CHEST PAIN, AFIB ON MONITOR W/RATE 80s-90s. PT TOLERATING PUREED DIET WELL, 3 BMs THIS SHIFT THAT HAVE BEEN SOFT/UNFORMED AND DARK PAYNE IN NATURE, MEPILEX CONTINUES ON COCCYX. 400ML OF SEROUS FLUID DRAINED FROM NEPHROSTOMY COLLECTION BAG, INSERTION SITE WNL. CONDOM CATHETER APPLIED D/TO INTERMITTENT INCONTINENCE TO ALLOW FOR MORE ACCURATE I&O, DRAINING TEA COLORED URINE. FLUIDS INFUSING PER ORDERS. WILL CONTINUE TO MONITOR AND TREAT ACCORDINGLY UNTIL CHANGE OF SHIFT.
[2023-11-10] MEDS ORDERED: Allopurinol 100 MG Tab PO SCH (21:00)
[2023-11-10] MEDS ORDERED: Tamsulosin HCl 0.4 MG Cap PO SCH (21:00)
--- NOTE | 2023-11-10 21:43 | NUR ---
THIS RN ASSUMED CARE AT APPROX 1915. PT RESTING IN BED WITH COMPLAINTS OF SORENESS FROM HIS COCCYX SORE. PT REPOSITIONED ON R SIDE TO PROMOTE SKIN INTEGRITY. PT ABLE TO ANSWER QUESTIONS APPROPRIATLEY AND MAKE HIS NEEDS KNOWN. HE IS A/OX4 WITH INT. FORGETFULNESS. HE IS ON TELE IN AFIB WITH RATES 80-90. HE DENIES CHEST PAIN/PRESSURE. HE IS ON RA WITH SPO2>90. HE DENIES SOB BUT HIS RESPIRATIONS ARE TACHY. HIS TEMPORAL TEMP IS ELEVATED. MEDICATED WITH TYLENOL PER EMAR. HE HAS A CONDOM CATH THAT IS DRAINING TO GRAVITY. SCD'S ON BILATERAL LOWER EXTREIMITIES. FLUIDS RUNNING PER EMAR. CALL LIGHT IN REACH, WILL CONTINUE TO MONITOR AND PROVIDE CARE.
[2023-11-10 21:56] LABS: Vancomycin, Trough 13.4 ug/mL (5.0-10.0)
[2023-11-11] VITALS (16 sets, daily range): BP systolic 79–117; BP diastolic 48–72
--- NOTE | 2023-11-11 00:24 | NUR ---
PROVIDER UPDATED ON SOFT BP. ORDERS RECEIVED FOR 500ML BOLUS OF LR. SEE EMAR
[2023-11-11] MEDS ORDERED: Lactated Ringer's 1,000 ML IV ONE (00:25)
--- NOTE | 2023-11-11 02:17 | NUR ---
Notified Dr Maxwell of post 1L fluid bolus blood pressure, no new orders at this time.
[2023-11-11] MEDS ORDERED: Midodrine 5 MG Tab PO ONE (02:25)
[2023-11-11] MEDS ORDERED: Albuterol 2.5 MG/3 ML VIAL INH PRN (03:15)
[2023-11-11 03:53] LABS: BASOPHILS ABSOLUTE AUTO 0.01 K/mm3 (0.00-0.23); BASOPHILS PERCENT AUTO 0 % (0-2); EOSINOPHILS ABSOLUTE AUTO 0.04 K/mm3 (0.00-0.68); EOSINOPHILS PERCENT AUTO 1 % (0-6); Hematocrit 25.1 % (37.0-53.0); Hemoglobin 8.5 g/dL (13.5-17.5); IMMATURE GRAN ABSOLUTE AUTO 0.03 K/mm3 (0.00-0.10); IMMATURE GRAN PERCENT AUTO 0 % (0-1); LYMPHOCYTES ABSOLUTE AUTO 0.98 K/mm3 (0.84-5.20); LYMPHOCYTES PERCENT AUTO 13 % (21-46); MONOCYTES ABSOLUTE AUTO 0.68 K/mm3 (0.16-1.47); MONOCYTES PERCENT AUTO 9 % (4-13); Mean Corpuscular HGB 32.4 pg (26.0-34.0); Mean Corpuscular HGB Conc 33.9 g/dL (31.5-36.5); Mean Corpuscular Volume 96 fL (80-100); Mean Platelet Volume 10.6 fL (9.1-12.4); NEUTROPHILS ABSOLUTE AUTO 6.01 K/mm3 (1.96-9.15); NEUTROPHILS PERCENT AUTO 78 % (41-73); Platelet Count 103 K/mm3 (150-400); RDW Coefficient Variation 14.7 % (11.7-14.2); RDW Standard Deviation 51.8 fL (35.1-46.3); Red Blood Cell Count 2.62 M/mm3 (4.30-5.90); White Blood Cell Count 7.75 K/mm3 (4.00-11.30)
--- NOTE | 2023-11-11 03:56 | NUR ---
PT REPORTS SOB. MD NOTIFIED. BNP ORDERED, BREATHING TX ADMINISTERED BY RT, AND PT PLACED ON CPAP.
[2023-11-11 04:17] LABS: Albumin, Blood 2.1 g/dL (3.4-5.0); Albumin/Globulin Ratio 0.7 (0.8-1.8); Bilirubin, Total 0.6 mg/dL (0.1-1.0); Bun/Creatinine Ratio 24.2 (12.0-20.0); Calcium, Blood 7.1 mg/dL (8.5-10.1); Creatinine, Blood 1.32 mg/dL (0.60-1.20); Globulin, Blood 2.9 g/dL (2.2-4.0); Phosphorus, Blood 1.8 mg/dL (2.5-4.9); Potassium, Blood 3.7 mmol/L (3.5-5.5)
--- NOTE | 2023-11-11 04:23 | NUR ---
SBP IN THE 80S. NOTIFIED, NO NEW ORDERS AT THIS TIME
--- NOTE | 2023-11-11 05:01 | NUR ---
MD TO BEDSIDE. FLUIDS STOPPED
[2023-11-11] MEDS ORDERED: Potassium Phosphate Dibasic 30 MM in Dextrose 5% 500 ML IV STA (07:06)
[2023-11-11] MEDS ORDERED: Albumin (Human) 25gm/100ml 100 ML IV ONE (07:10)
[2023-11-11] MEDS ORDERED: Tamsulosin HCl 0.4 MG Cap PO SCH (09:00)
[2023-11-11] MEDS ORDERED: Metoprolol Succinate 25 MG TABCR PO SCH (09:00)
[2023-11-11] MEDS ORDERED: Cyanocobalamin 500 MCG Tab PO SCH (09:00)
[2023-11-11] MEDS ORDERED: Enoxaparin 40 MG/0.4 ML SYR SC SCH (09:00)
--- NOTE | 2023-11-11 11:23 | NUR ---
AM NOTE PT ALERT, ORIENTED X4; FORGETFUL AT TIMES. PT RESTING IN BED 1-2 PERSON ASSIST TO CHAIR. PT DENIES PAIN CHEST PAIN/PRESSURE, SOB, NAUSEA, DIZZINESS AND NUMB TINGLING. PT TELE SINUS W PAC/PVC 60-70; BP SOFT. SPO2 >90% ON 2L O2 VIA NC, BREATHING EVEN AND UNABLORED, LS CLEAR, DIM BASES. ABD SOFT, MILD DISTENDED, NONTENDER WITH HYPO ACTIVE BT. EDEMA NOTED BILATERAL FEET. L NEPH TUBE C/D/I; DRAINAGE YELLOW, RED TINGED. PT INCONTINENT. OTHER VSS. NO OTHER ACUTE CHANGES NOTED. WILL CONTINUE TO MONITOR.
--- NOTE | 2023-11-11 17:16 | NUR ---
Shift Summary Tmax 100.9, medicated with tylenol per orders. BP trending up t/o shift. Other vss. Pt up to recliner with 2 person assist. No other acute changes noted. Will continue to monitor.
[2023-11-11] MEDS ORDERED: Ondansetron HCl 2 MG / ML 2ML Vial IV ONE (20:05)
[2023-11-11] MEDS ORDERED: NS 250 ML IV PRN (20:50)
--- NOTE | 2023-11-11 21:45 | NUR ---
ASSUMPTION OF CARE: THIS RN ASSUMED CARE OF PT AT APPROX 1900. PT ALERT, ORIENTED X3-4, FORGETFUL AT TIMES. ABLE TO MAKE NEEDS KNOWN. VSS. HR 80'S, SINUS W/ PAC'S ON TELE. SBP 110'S, MAP >65. DENIES CHEST PAIN/PRESSURE. SPO2 >90% ON RA, WET CHIEF CONTROLLER COUGH NOTED. C/O NAUSEA; RESIDENT PHYSICIAN NOTIFIED, ORDERS RECEIVED FOR ZOFRAN, SEE EMAR. AFEBRILE. PT REPOSITIONED IN BED, ATTENDS C/D/I. NEPHROSTOMY DRAINING TEA-COLORED URINE, SITE INTACT. CONDOM CATH IN PLACE, SMALL AMOUNT OF YELLOW URINE AT THIS TIME. NO OTHER NEEDS AT THIS TIME, CALL LIGHT IN REACH.
[2023-11-12 03:14] VITALS: BP 108/70
[2023-11-12 03:52] LABS: BASOPHILS ABSOLUTE AUTO 0.02 K/mm3 (0.00-0.23); BASOPHILS PERCENT AUTO 0 % (0-2); EOSINOPHILS ABSOLUTE AUTO 0.08 K/mm3 (0.00-0.68); EOSINOPHILS PERCENT AUTO 1 % (0-6); Hematocrit 25.6 % (37.0-53.0); Hemoglobin 8.5 g/dL (13.5-17.5); IMMATURE GRAN ABSOLUTE AUTO 0.05 K/mm3 (0.00-0.10); IMMATURE GRAN PERCENT AUTO 1 % (0-1); LYMPHOCYTES ABSOLUTE AUTO 0.73 K/mm3 (0.84-5.20); LYMPHOCYTES PERCENT AUTO 10 % (21-46); MONOCYTES ABSOLUTE AUTO 0.62 K/mm3 (0.16-1.47); MONOCYTES PERCENT AUTO 9 % (4-13); Mean Corpuscular HGB 31.8 pg (26.0-34.0); Mean Corpuscular HGB Conc 33.2 g/dL (31.5-36.5); Mean Corpuscular Volume 96 fL (80-100); Mean Platelet Volume 10.9 fL (9.1-12.4); NEUTROPHILS ABSOLUTE AUTO 5.66 K/mm3 (1.96-9.15); NEUTROPHILS PERCENT AUTO 79 % (41-73); Platelet Count 116 K/mm3 (150-400); RDW Coefficient Variation 14.9 % (11.7-14.2); Red Blood Cell Count 2.67 M/mm3 (4.30-5.90); White Blood Cell Count 7.16 K/mm3 (4.00-11.30)
[2023-11-12 04:11] LABS: Albumin, Blood 2.2 g/dL (3.4-5.0); Anion Gap 11 mmol/L (3-11); Blood Urea Nitrogen 31 mg/dL (8-24); CO2, Blood 20 mmol/L (21-32); Calcium, Blood 7.1 mg/dL (8.5-10.1); Chloride, Blood 116 mmol/L (98-108); Creatinine, Blood 1.35 mg/dL (0.60-1.20); Glomerular Filtration Rate 51 (60-); Glucose, Blood 96 mg/dL (70-99); Phosphorus, Blood 2.1 mg/dL (2.5-4.9); Potassium, Blood 4.1 mmol/L (3.5-5.5); Sodium, Blood 143 mmol/L (136-145)
--- NOTE | 2023-11-12 04:17 | NUR ---
END OF SHIFT NOTE: NO ACUTE EVENTS OVERNIGHT. PT HAS DEMONSTRATED SOME INTERMITTENT CONFUSION BUT IS EASILY REORIENTED. VSS. HR 70-80'S, SINUS ON TELE. SBP 90-110'S, MAP >65. SPO2 >90% ON RA WHILE AWAKE, 2-3L NC WHILE ASLEEP. LEFT NEPHROSTOMY W/ TEA COLORED OUTPUT OVERNIGHT. CONDOM CATH IN PLACE DRAINING ROMAN URINE TO GRAVITY. NO BM'S OVERNIGHT. Q2HR REPOSITIONING. NO OTHER NEEDS AT THIS TIME. CALL LIGHT IN REACH. WILL REPORT TO ONCOMING RN.
[2023-11-12 08:49] VITALS: BP 108/52
[2023-11-12 11:11] VITALS: BP 92/54
--- NOTE | 2023-11-12 13:42 | NUR ---
RECEIVED REPORT FROM PRIMARY RN. THIS RN TO ASSUME CARE WHILE PRIMARY ON MEAL BREAK. PT SITTING UP RESTING. CALL LIGHT IN REACH AND DENIES ANY CURRENT NEEDS.
[2023-11-12] MEDS ORDERED: Ondansetron HCl 2 MG / ML 2ML Vial IV PRN (16:00)
[2023-11-12] MEDS ORDERED: Ondansetron HCl 2 MG / ML 2ML Vial IV ONE (16:00)
[2023-11-12 16:07] VITALS: BP 120/67
--- NOTE | 2023-11-12 17:38 | NUR ---
SHIFT SUMMARY PT ALERT, ORIENTED X4; ANXIOUS AT TIMES. PT UP IN RECLINER FOR MAJORITY OF DAY, 1-2 PERSON TRANSFER TO CHAIR FROM BED. PT REPORTS PAIN TO BACK AND UPPER THIGH AREA, MEDICATED PER EMAR. AFTER DRINKING CARBONATED DRINK PT REPORTING "PAINFUL GOING DOWN", BURNING PAIN IN STOMACH AND NAUSEA AND EMESIS; NOTIFIED MD, ORDERS FOR ZOFRAN, PT REPORTING RELEIF AFTER ZOFRAN. TELE SINUS, BP STABLE. ABD SOFT, NONTENDER, +BT NOTED. SPO2 >90% ON RA, WEARING 2-3L O2 VIA NC AT NOC, PT CONTINUES TO REPORTS NONPRODUCTIVE COUGH. EDEMA NOTED TO BILATERAL FEET, 2+. NO OTHER ACUTE CHAGNES NOTED. WILL CONTINUE TO MONITOR.
[2023-11-12 20:03] VITALS: BP 100/50
[2023-11-12 21:29] LABS: Vancomycin, Trough 20.4 ug/mL (5.0-10.0)
--- NOTE | 2023-11-12 21:44 | NUR ---
Vanco Trough Spoke with pharmacist regarding pts vanco trough of 20.4, pharmacist to review 2200 dose and adjust dose as necessary per their protocol.
[2023-11-12] MEDS ORDERED: Vancomycin HCL 1,000 MG in NS 100 ML IV SCH (23:00)
[2023-11-12 23:04] VITALS: BP 92/67
[2023-11-13 04:11] VITALS: BP 94/65
--- NOTE | 2023-11-13 05:10 | NUR ---
SHIFT SUMMARY A/Ox3-4 AND COOPERATTIVE WITH CARE. ANSWERS QUESTIONS APPROPRIATELY AND ABLE TO MAKE HIS NEED KNOWN. NO ACUTE EVENTS OVERNIGHT. CARDIAC, REMAINS IN SR 70-80'S WITH NO REPORTS OF CP, PRESSURE, OR PALPITATIONS. SBP SOFT BUT STABLE. RESPIRATORY, MAINTAINS SPO2 >90% ON RA WHEN AWAKE. INTERMITTENT DESATURATIONS INTO THE MID 80'S WHEN ASLEEP. OVERNIGHT SLEEP STUDY CONDUCTED. GI/, CONDOM CATH IN PLACE AND DRAINING YELLOW URINE TO GRAVITY. NO BM THIS SHIFT. Q2 HR REPOSITIONING USED. NO NEW ORDERS AT THIS TIME WILL REPORT TO ONCOMING RN. JARETT TEJEDA OF THIS NOTE.
[2023-11-13 06:28] LABS: BASOPHILS ABSOLUTE AUTO 0.01 K/mm3 (0.00-0.23); BASOPHILS PERCENT AUTO 0 % (0-2); EOSINOPHILS ABSOLUTE AUTO 0.13 K/mm3 (0.00-0.68); EOSINOPHILS PERCENT AUTO 2 % (0-6); Hematocrit 24.9 % (37.0-53.0); Hemoglobin 8.5 g/dL (13.5-17.5); IMMATURE GRAN ABSOLUTE AUTO 0.05 K/mm3 (0.00-0.10); IMMATURE GRAN PERCENT AUTO 1 % (0-1); LYMPHOCYTES ABSOLUTE AUTO 0.74 K/mm3 (0.84-5.20); LYMPHOCYTES PERCENT AUTO 11 % (21-46); MONOCYTES ABSOLUTE AUTO 0.64 K/mm3 (0.16-1.47); MONOCYTES PERCENT AUTO 9 % (4-13); Mean Corpuscular HGB 32.8 pg (26.0-34.0); Mean Corpuscular HGB Conc 34.1 g/dL (31.5-36.5); Mean Corpuscular Volume 96 fL (80-100); Mean Platelet Volume 9.8 fL (9.1-12.4); NEUTROPHILS ABSOLUTE AUTO 5.45 K/mm3 (1.96-9.15); NEUTROPHILS PERCENT AUTO 78 % (41-73); Platelet Count 151 K/mm3 (150-400); RDW Coefficient Variation 15.1 % (11.7-14.2); RDW Standard Deviation 52.8 fL (35.1-46.3); Red Blood Cell Count 2.59 M/mm3 (4.30-5.90); White Blood Cell Count 7.02 K/mm3 (4.00-11.30)
[2023-11-13 06:46] LABS: Albumin, Blood 2.1 g/dL (3.4-5.0); Anion Gap 8 mmol/L (3-11); Blood Urea Nitrogen 32 mg/dL (8-24); Bun/Creatinine Ratio 23.4 (12.0-20.0); CO2, Blood 23 mmol/L (21-32); Calcium, Blood 7.3 mg/dL (8.5-10.1); Chloride, Blood 115 mmol/L (98-108); Creatinine, Blood 1.37 mg/dL (0.60-1.20); Glomerular Filtration Rate 50 (60-); Glucose, Blood 106 mg/dL (70-99); Phosphorus, Blood 1.7 mg/dL (2.5-4.9); Potassium, Blood 4.1 mmol/L (3.5-5.5); Sodium, Blood 142 mmol/L (136-145)
[2023-11-13 08:00] VITALS: BP 106/60
--- NOTE | 2023-11-13 08:00 | NUR ---
ASUSMPTION OF CARE: ASSUMED CARE OF PT AT 0700 AFTER REPORT FROM NOC RN. PT REMIANS STABLE FROM NOC NOTE. HE IS UP IN CHAIR AND EATING BREAKFAST. RESPONSIVE TO THIS RN UPON ENTRANCE. AXO X 4 CALM AND COOPERATIVE WITH STAFF. NO NEURO DEFICITS BUT IS GENERALLY WEAK AND UNABLE TO AMBULATE W/O ASSISTANCE. HE IS C/O A COUGH THAT KEPT HIM UP ALL NIGHT. LUNG SOUNDS SLIGHTLY COARSE, BUT O2 IS 97% ON RA. HE DENIES C/P B/P SOFT BUT STABLE. NO ABDOMINAL PAIN OR DISTENTION. HE IS INCONTINENT OF URINE AND STOOL. CONDOM CATH IN PLACE DRAINING WELL. HE HAS AGREED TO BE DCD TO SNF UPON DISCHARGE. L NEPH DRAINAGE SYSTEM IN PLACE DRAINING WELL. DRESSIING CLEAN AND DRY. LEOBARDOY DENIES NEEDS, CALL LIGHT IN REACH.
[2023-11-13] MEDS ORDERED: OxyCODONE HCL 5 MG TAB PO PRN (13:30)
--- NOTE | 2023-11-13 14:12 | NUR ---
ASSUMING CARE OF PT WHILE PRIMARY RN TO LUNCH BREAK. PT RESTING IN BED, VSS. HE DENIES ANY CURRENT NEEDS. SPEECH THERAPY AT BEDSIDE TO EVALUATE AT THIS TIME, CALL LIGHT IN REACH.
[2023-11-13 16:13] VITALS: BP 103/61
--- NOTE | 2023-11-13 16:23 | NUR ---
ASSUMED CARE FROM 1230 FROM RAINER HENRY. PT WAS C/O R HIP PAIN, TYLENOL OFFERED PT REFUSED PT STATED IT DOESNT HELP HIM AT ALL. NOTED THAT PT IS ON OXYCODONE 10 MG TID PRN, PT PAIN 02/11. MD MADE AWARE AND RESUME HOME DOSE OF OXYCODONE. PT IS MEDICAL STATUS WITH NO TELE, REPORT GIVEN TO LIVIA HENRY,. ALL BELONGINGS SENT WITH THE PT. LEFT A VOICEMAIL FOR DAUGHTER KATINA AND MADE AWARE
--- NOTE | 2023-11-13 16:30 | NUR ---
ASSUMED CARE: PT ARRIVED TO ROOM 302 VIA BED. ALERT AND ORIENTED, TALKING TO STAFF. CALL LIGHT IN REACH. BED ALARM ON, CALL LIGHT IN REACH. DENIES NEEDS OR CONCERNS AT THIS TIME.
--- NOTE | 2023-11-13 17:58 | NUR ---
SHIFT SUMMARY: PT'S NEPHROSTOMY AND CONDOM CATH BOTH DRAINING YELLOW URINE. NSR ON TELE. ON RA. NO ACUTE NEEDS OR CONCERNS AT THIS TIME.
[2023-11-13 19:26] VITALS: BP 103/67
[2023-11-14 04:30] VITALS: BP 118/72
[2023-11-14] MEDS ORDERED: Benzonatate 100 MG Cap PO PRN (05:00)
[2023-11-14] MEDS ORDERED: Benzonatate 100 MG Cap PO ONE (05:00)
[2023-11-14 05:07] LABS: BASOPHILS ABSOLUTE AUTO 0.01 K/mm3 (0.00-0.23); BASOPHILS PERCENT AUTO 0 % (0-2); EOSINOPHILS ABSOLUTE AUTO 0.16 K/mm3 (0.00-0.68); EOSINOPHILS PERCENT AUTO 3 % (0-6); Hematocrit 25.1 % (37.0-53.0); Hemoglobin 8.2 g/dL (13.5-17.5); IMMATURE GRAN ABSOLUTE AUTO 0.06 K/mm3 (0.00-0.10); IMMATURE GRAN PERCENT AUTO 1 % (0-1); LYMPHOCYTES ABSOLUTE AUTO 1.02 K/mm3 (0.84-5.20); LYMPHOCYTES PERCENT AUTO 16 % (21-46); MONOCYTES ABSOLUTE AUTO 0.74 K/mm3 (0.16-1.47); MONOCYTES PERCENT AUTO 12 % (4-13); Mean Corpuscular HGB Conc 32.7 g/dL (31.5-36.5); Mean Corpuscular Volume 98 fL (80-100); Mean Platelet Volume 10.3 fL (9.1-12.4); NEUTROPHILS ABSOLUTE AUTO 4.36 K/mm3 (1.96-9.15); NEUTROPHILS PERCENT AUTO 69 % (41-73); Platelet Count 194 K/mm3 (150-400); RDW Coefficient Variation 15.4 % (11.7-14.2); Red Blood Cell Count 2.56 M/mm3 (4.30-5.90); White Blood Cell Count 6.35 K/mm3 (4.00-11.30)
[2023-11-14 05:41] LABS: Bun/Creatinine Ratio 21.9 (12.0-20.0); Calcium, Blood 7.3 mg/dL (8.5-10.1); Creatinine, Blood 1.46 mg/dL (0.60-1.20); Potassium, Blood 4.3 mmol/L (3.5-5.5)
--- NOTE | 2023-11-14 05:59 | NUR ---
ELECTRICAL TECH PATIENT IS A&OX4, VITALS ARE STABLE. PATIENT TEND TO HAVE MUMBLE SPEECH AT TIMES. HE USES CPAP AN NIGHT. PATIENT COMPLAINED OF COUGH AND REQUESTED SOMETHING TO BE ORDERED. ORDERED TESSALON PRN FOR COUGH. PATIENT IS CURRENTLY RELAXING IN BED WITH NO OTHER CONCERNS. PLAN IS FOR PATIENT TO BE D/C TO A SNF AFTER HE HAS BEEN APPROVED.
[2023-11-14 07:49] VITALS: BP 108/66
[2023-11-14] MEDS ORDERED: Heparin Sodium,Porcine 5,000 UNIT/0.5 ML SDV SC SCH (08:00)
[2023-11-14] MEDS ORDERED: Enoxaparin 30 MG/0.3 ML SYR SC SCH (08:00)
[2023-11-14] MEDS ORDERED: VISBIOME 112.51 EACH PO (12:16)
[2023-11-14] MEDS ORDERED: Vancomycin HCl500 MG IV (12:17)
[2023-11-14 13:56] LABS: Influenza A, PCR NEGATIVE (NEGATIVE); Influenza B, PCR NEGATIVE (NEGATIVE); Resp Syncytial Virus, PCR NEGATIVE (NEGATIVE); SARS-Cov-2 (COVID-19) PCR, MMC NEGATIVE (NEGATIVE)
--- NOTE | 2023-11-14 18:33 | NUR ---
SHIFT SUMMARY AND DISCHARGE PATIENT ALERT AND INTERACTIVE. PATIENT UP TO CHAIR WITH 2 PERSON ASSIST. PATIENT BASELINE IS PIVOT TRANSFER INDEPENDENTLY AT HOME. [facility] FOR ANTIBIOTIC THERAPY AND THERAPY. REPORT CALLED TO [facility]. BELONGINGS SENT WITH PATIENT AND PATIENT TRANSFERRED VIA WHEELCHAIR TRANSPORT.
== END 2023-11-14 16:17 | DRG 689 ==
LOC: ER 03:43 → MEDS 08:09 → ICUE 08:09 → MEDS 10:16 → ICUE 23:17 → PCU 11-09 09:24 → ICUE 11-09 09:24 → PCU 11-10 00:15 → MEDS 11-13 16:46
PROVIDERS: Emergency Medicine; Family Medicine; Student in an Organized Health Care Education/Training Program; ADMIT Hospitalist
PROC: 0T9B70Z Drainage of Bladder with Drainage Device, Via Natural or Artificial Opening (ICD-10-PCS; principal; 2023-11-08)
PROC: 3E03329 Introduction of Other Anti-infective into Peripheral Vein, Percutaneous Approach (ICD-10-PCS; 2023-11-08)
PROC: 0T9430Z Drainage of Left Kidney Pelvis with Drainage Device, Percutaneous Approach (ICD-10-PCS; 2023-11-08)
DX: N13.6 Pyonephrosis (principal); A41.4 Sepsis due to anaerobes; R65.20 Severe sepsis without septic shock; I13.0 Hypertensive heart and chronic kidney disease with heart failure and stage 1 through stage 4 chronic kidney disease, or unspecified chronic kidney disease; I50.32 Chronic diastolic (congestive) heart failure; N17.9 Acute kidney failure, unspecified; I25.10 Atherosclerotic heart disease of native coronary artery without angina pectoris; E11.22 Type 2 diabetes mellitus with diabetic chronic kidney disease; E78.5 Hyperlipidemia, unspecified; Z66 Do not resuscitate; G47.33 Obstructive sleep apnea (adult) (pediatric); F32.A Depression, unspecified; D50.9 Iron deficiency anemia, unspecified; N40.1 Benign prostatic hyperplasia with lower urinary tract symptoms; R33.8 Other retention of urine; E86.0 Dehydration; N18.32 Chronic kidney disease, stage 3b; D63.1 Anemia in chronic kidney disease; M10.9 Gout, unspecified; E11.40 Type 2 diabetes mellitus with diabetic neuropathy, unspecified; Z98.890 Other specified postprocedural states; Z87.891 Personal history of nicotine dependence; Z88.0 Allergy status to penicillin; I25.2 Old myocardial infarction; Z87.442 Personal history of urinary calculi; Z95.5 Presence of coronary angioplasty implant and graft; Z88.5 Allergy status to narcotic agent; Z79.82 Long term (current) use of aspirin; Z79.02 Long term (current) use of antithrombotics/antiplatelets; Z79.891 Long term (current) use of opiate analgesic; Z79.899 Other long term (current) drug therapy; I48.0 Paroxysmal atrial fibrillation; G89.29 Other chronic pain; B95.8 Unspecified staphylococcus as the cause of diseases classified elsewhere; R31.9 Hematuria, unspecified; I48.91 Unspecified atrial fibrillation
CPT/HCPCS: 0241U; 36415; 51702; 51798; 74177; 76705; 76937; 80048; 80053; 80069; 80202; 81001; 82947; 83605; 83880; 84100; 85025; 85610; 87040; 87077; 87086; 87186; 92526; 92610; 94640; 94660; 94664; 94760; 94762; 96360-59; 96361; 96361-59; 96365-59; 96366; 96367; 96375-59; 96376; 97110; 97162; 97165; 97530; 97535; 99152; 99153; 99284-25; 99285-25; A9270; C1713; C1729; C1751; C1769; C1894; G0378; J0696; J1650; J2250; J2405; J3010; J3370; J7030; J7040; J7050; J7060; J7120; P9047; Q9967

== ENCOUNTER 2024-02-01 09:23 | Inpatient (IN) | payer OTHER ==
[~2024-02-01] VITALS: Ht 177.8 cm; Wt 46.1 kg
[~2024-02-01 09:23] MED LIST changes: +Cialis20 MG PO; +GABAPENTIN600 MG PO; +IRBESARTAN75 M3 PO; +KLOR-CON 1010 ME9 PO; +METOPROLOL SUCC25 MG PO; +TAMSULOSIN HCL0.4 M1 PO; +VISBIOME 112.51 EACH PO; +Vancomycin HCl500 MG IV
[2024-02-01] MEDS ORDERED: NS 1,000 ML IV SCH ×2 (09:35→13:10)
[2024-02-01 09:47] LABS: BASOPHILS ABSOLUTE AUTO 0.01 K/mm3 (0.00-0.23); BASOPHILS PERCENT AUTO 0 % (0-2); EOSINOPHILS ABSOLUTE AUTO 0.16 K/mm3 (0.00-0.68); EOSINOPHILS PERCENT AUTO 3 % (0-6); Hematocrit 24.4 % (37.0-53.0); Hemoglobin 7.7 g/dL (13.5-17.5); IMMATURE GRAN ABSOLUTE AUTO 0.02 K/mm3 (0.00-0.10); IMMATURE GRAN PERCENT AUTO 0 % (0-1); LYMPHOCYTES ABSOLUTE AUTO 0.84 K/mm3 (0.84-5.20); LYMPHOCYTES PERCENT AUTO 16 % (21-46); MONOCYTES ABSOLUTE AUTO 0.48 K/mm3 (0.16-1.47); MONOCYTES PERCENT AUTO 9 % (4-13); Mean Corpuscular HGB 28.3 pg (26.0-34.0); Mean Corpuscular HGB Conc 31.6 g/dL (31.5-36.5); Mean Corpuscular Volume 90 fL (80-100); NEUTROPHILS ABSOLUTE AUTO 3.87 K/mm3 (1.96-9.15); NEUTROPHILS PERCENT AUTO 72 % (41-73); Platelet Count 203 K/mm3 (150-400); RDW Standard Deviation 58.3 fL (35.1-46.3); Red Blood Cell Count 2.72 M/mm3 (4.30-5.90); White Blood Cell Count 5.38 K/mm3 (4.00-11.30)
[2024-02-01 10:05] LABS: Albumin, Blood 2.6 g/dL (3.4-5.0); Albumin/Globulin Ratio 0.7 (0.8-1.8); Bilirubin, Total 0.6 mg/dL (0.1-1.0); Bun/Creatinine Ratio 23.7 (12.0-20.0); Calcium, Blood 8.3 mg/dL (8.5-10.1); Creatinine, Blood 1.73 mg/dL (0.60-1.20); Globulin, Blood 3.9 g/dL (2.2-4.0); Magnesium, Blood 2.1 mg/dL (1.6-2.4); Potassium, Blood 4.9 mmol/L (3.5-5.5); Total Protein, Blood 6.5 g/dL (6.4-8.2)
[2024-02-01 12:42] LABS: Source, Urine Clean Catch
[2024-02-01 12:46] LABS: Appearance, Urine Hazy (Clear); Bilirubin, Urine Neg (Neg); Blood, Urine 5+ (Neg); Color, Urine Yellow (P-Yellow); Glucose Qualitative, Urine Neg (Neg); Ketones, Urine Neg (Neg); Leukocyte Esterase, Urine 3+ (Neg); Nitrite, Urine Neg (Neg); Protein, Urine 3+ (Neg); Specific Gravity, Urine 1.015 (1.003-1.022); Urobilinogen, Urine NORM (Normal)
[2024-02-01 13:06] LABS: Bacteria Many /hpf; Squamous Epithelial Cells Rare /hpf (Few); White Blood Cells, Urine TNTC /hpf (0-5)
[2024-02-01] MEDS ORDERED: CefTRIAXone Sodium 1,000 MG in NS 100 ML IV ONE (13:10)
[2024-02-01] MEDS ORDERED: Benzonatate 100 MG Cap PO ONE (13:55)
[2024-02-01] MEDS ORDERED: Acetaminophen 325 MG TABLET PO PRN (14:10)
[2024-02-01] MEDS ORDERED: Lactated Ringer's 1,000 ML IV SCH (14:10)
[2024-02-01 15:05] LABS: Percent Saturation 9.4 % (20.0-50.0)
[2024-02-01 15:57] VITALS: BP 109/59
[2024-02-01] MEDS ORDERED: Insulin Regular 100 UNIT/ML 10ML Vial SC SCH (16:30)
--- NOTE | 2024-02-01 17:19 | NUR ---
ADMISSION NOTE: PATIENT ARRIVES TO ROOM AT 1550 VIA GURNEY FROM ER FOR DX'S OF UTI. PATIENT TRANSFERRED TO BED USING SLIDER SHEET. ADMISSION, MEDRIC AND SKIN ASSESSMENT c 2 RN'S VERIFIED COMPLETED. PATIENT A/O TO SELF, PLACED, PERSON AND CURRENT SITUATION, CONFUSED TO DATES. PATIENT HAS DRY NON PRODUCTIVE COUGH, LUNGS HAS COARSE AND WHEEZY T/O TO AUSCULTATION. PATIENT DENIES CP/PRESSURE, SOB, N/V AND DIZZINESS. PATIENT ON TELE, SR HR IN THE 70'S BPM, TRACES OF EDEMA TO BLE'S, ELEVATED ON PILLOWS. PATIENT HAS L NEPHROSTOMY, DRAINING CLOUDY YELLOW URINE TO GRAVITY. PATIENT USES URINAL IN BED c ASSISTANCE. PATIENT IS INCONTINENT OF BOWEL, ATTENDS IN PLACED. PATIENT REPORTS USES ELECTRIC SCOOTER AT BASELINE AND DOES NOT AMBULATE. PATIENT HAS PIV TO R FOREARM, INFUSING LR AT 100 MLS/HR. PATIENT ORIENTATED TO ROOM AND CALL SYSTEM. BED ALARM ON FOR SAFETY. CALL LIGHT IN REACH.
[2024-02-01] MEDS ORDERED: Benzonatate 100 MG Cap PO PRN (17:20)
[2024-02-01 17:47] LABS: Influenza A, PCR NEGATIVE (NEGATIVE); Influenza B, PCR NEGATIVE (NEGATIVE); Resp Syncytial Virus, PCR NEGATIVE (NEGATIVE)
[2024-02-01 18:14] LABS: SARS-Cov-2 (COVID-19) PCR, MMC POSITIVE (NEGATIVE)
[2024-02-01 19:30] VITALS: BP 103/64
[2024-02-01] MEDS ORDERED: Allopurinol 300 MG Tab PO SCH (21:00)
[2024-02-01] MEDS ORDERED: Lactobacil 2-S.Thermo-Bifido 1 1 Cap PO SCH (21:00)
[2024-02-01] MEDS ORDERED: Tamsulosin HCl 0.4 MG Cap PO SCH (21:00)
[2024-02-02] VITALS (7 sets, daily range): BP systolic 100–128; BP diastolic 59–67
[2024-02-02] MEDS ORDERED: Ipratropium/Albuterol SulF 2.5-0.5MG/3 ML Amp INH PRN (05:15)
[2024-02-02 05:25] LABS: BASOPHILS ABSOLUTE AUTO 0.01 K/mm3 (0.00-0.23); BASOPHILS PERCENT AUTO 0 % (0-2); EOSINOPHILS ABSOLUTE AUTO 0.13 K/mm3 (0.00-0.68); EOSINOPHILS PERCENT AUTO 4 % (0-6); Hematocrit 21.3 % (37.0-53.0); Hemoglobin 6.6 g/dL (13.5-17.5); IMMATURE GRAN ABSOLUTE AUTO 0.02 K/mm3 (0.00-0.10); IMMATURE GRAN PERCENT AUTO 1 % (0-1); LYMPHOCYTES ABSOLUTE AUTO 0.74 K/mm3 (0.84-5.20); LYMPHOCYTES PERCENT AUTO 21 % (21-46); MONOCYTES ABSOLUTE AUTO 0.28 K/mm3 (0.16-1.47); MONOCYTES PERCENT AUTO 8 % (4-13); Mean Corpuscular HGB 28.1 pg (26.0-34.0); Mean Corpuscular Volume 91 fL (80-100); NEUTROPHILS ABSOLUTE AUTO 2.29 K/mm3 (1.96-9.15); NEUTROPHILS PERCENT AUTO 66 % (41-73); Platelet Count 157 K/mm3 (150-400); RDW Coefficient Variation 17.7 % (11.7-14.2); RDW Standard Deviation 59.2 fL (35.1-46.3); Red Blood Cell Count 2.35 M/mm3 (4.30-5.90); White Blood Cell Count 3.47 K/mm3 (4.00-11.30)
[2024-02-02 05:54] LABS: Bun/Creatinine Ratio 24.1 (12.0-20.0); Calcium, Blood 7.8 mg/dL (8.5-10.1); Creatinine, Blood 1.33 mg/dL (0.60-1.20); Potassium, Blood 4.2 mmol/L (3.5-5.5)
[2024-02-02 07:44] LABS: Stool Occult Blood Guaiac 1 Neg (Neg)
[2024-02-02] MEDS ORDERED: Atorvastatin 40 MG Tab PO SCH (09:00)
[2024-02-02] MEDS ORDERED: Clopidogrel Bisulfate 75 MG Tab PO SCH (09:00)
[2024-02-02] MEDS ORDERED: Enoxaparin 30 MG/0.3 ML SYR SC SCH ×2 (09:00→11:00)
[2024-02-02] MEDS ORDERED: Aspirin 81 MG Chew PO SCH (09:00)
[2024-02-02] MEDS ORDERED: NS 500 ML IV SCH (09:05)
[2024-02-02] MEDS ORDERED: CefTRIAXone Sodium 1,000 MG in NS 100 ML IV SCH (14:00)
[2024-02-02 14:14] LABS: Hematocrit 24.6 % (37.0-53.0); Hemoglobin 7.8 g/dL (13.5-17.5)
--- NOTE | 2024-02-02 16:49 | NUR ---
SHIFT SUMMARY PATIENT IN BED THIS SHIFT. RECEIVED 1 UNIT PRBC WITHOUT COMPLICATION. REPEAT H&H DRAWN.
[2024-02-03 00:16] VITALS: BP 126/70
[2024-02-03] MEDS ORDERED: OxyCODONE HCL 5 MG TAB PO PRN (01:35)
[2024-02-03 05:10] VITALS: BP 107/78
[2024-02-03 05:23] LABS: BASOPHILS ABSOLUTE AUTO 0.01 K/mm3 (0.00-0.23); BASOPHILS PERCENT AUTO 0 % (0-2); EOSINOPHILS PERCENT AUTO 5 % (0-6); Hematocrit 25.8 % (37.0-53.0); Hemoglobin 8.1 g/dL (13.5-17.5); IMMATURE GRAN ABSOLUTE AUTO 0.01 K/mm3 (0.00-0.10); IMMATURE GRAN PERCENT AUTO 0 % (0-1); LYMPHOCYTES ABSOLUTE AUTO 0.79 K/mm3 (0.84-5.20); LYMPHOCYTES PERCENT AUTO 19 % (21-46); MONOCYTES ABSOLUTE AUTO 0.32 K/mm3 (0.16-1.47); MONOCYTES PERCENT AUTO 8 % (4-13); Mean Corpuscular HGB 27.7 pg (26.0-34.0); Mean Corpuscular HGB Conc 31.4 g/dL (31.5-36.5); Mean Corpuscular Volume 88 fL (80-100); Mean Platelet Volume 10.1 fL (9.1-12.4); NEUTROPHILS ABSOLUTE AUTO 2.85 K/mm3 (1.96-9.15); NEUTROPHILS PERCENT AUTO 68 % (41-73); Platelet Count 184 K/mm3 (150-400); RDW Coefficient Variation 19.4 % (11.7-14.2); RDW Standard Deviation 63.4 fL (35.1-46.3); Red Blood Cell Count 2.92 M/mm3 (4.30-5.90); White Blood Cell Count 4.18 K/mm3 (4.00-11.30)
[2024-02-03 05:53] LABS: Bun/Creatinine Ratio 21.8 (12.0-20.0); Calcium, Blood 8.3 mg/dL (8.5-10.1); Creatinine, Blood 1.1 mg/dL (0.60-1.20)
[2024-02-03] MEDS ORDERED: Pantoprazole Sodium 40 MG Tab PO SCH (06:00)
--- NOTE | 2024-02-03 06:23 | NUR ---
VP SOFTWARE SUPPORT SUMMARY PT HAS DONE WELL OVERNIGHT. HGB IMPROVED THIS MORNING TO 8.1. VP SOFTWARE SUPPORT MD RESTARTED HIS HOME PAIN MEDS PER HIS REQUEST FOR HIS CHRONIC PAIN. PT HEARD FROM [facility] LAST NIGHT THAT HIS ONLY HAS 1-2 DAYS TO SURVIVE AND HE WOULD LIKE TO BE THERE WITH HER. HE SAID HE WOULD CONSIDER LEAVING AMA IF HIS DOCTOR CANNOT DISCHARGE HIM TODAY. I ENCOURAGED HIM TO LISTEN TO HIS DOCTOR AND ONLY DISCHARGE WHEN IT IS MEDICALLY SAFE TO DO SO. I OFFERED TO LET HIM FACETIME WITH HIS BUT HE DECLINED.
[2024-02-03 07:41] VITALS: BP 115/70
--- NOTE | 2024-02-03 10:58 | NUR ---
CONTACTED DR GAGNON REGARDING ROUNDING. PATIENT ANXIOUS AND VERBALIZING DESIRE TO LEAVE AMA. CONTACTED KATINA WITH UPDATES.
[2024-02-03] MEDS ORDERED: Ertapenem Sodium 1,000 MG in NS 50 ML IV ONE (11:10)
--- NOTE | 2024-02-03 11:39 | NUR ---
DR GAGNON IN ROOM WITH PATIENT, OKAY WITH SENDING PT HOME 6 DAYS IV ABX TO [facility] D[facility]. BARRIERS WITH TRANSPORTATION PREVENT THIS PLAN. CM CONSULTED, STATED IT WOULD BE AT LEAST 1 MORE DAY BEFORE HOME HEALTH COULD BE SET UP, PATIENT DESIRES TO LEAVE AMA IF CANNOT BE DISCHARGED TODAY, IS AT HOME DYING AND PATIENT WANTS TO BE WITH HER. DR GAGNON INFORMED OF BARRIERS AND OKAYED ONE TIME ERTAPENUM PRIOR TO DISCHARGE AND WILL SEND HOME ON MACROBID. DAUGHTER KATINA AND PATIENT AGREEABLE TO THIS PLAN.
[2024-02-03] MEDS ORDERED: PANT40 PO (12:04)
[2024-02-03] MEDS ORDERED: NITR100CA PO (12:04)
--- NOTE | 2024-02-03 14:21 | NUR ---
DISCHARGE SUMMARY PATIENT DISCHARGED HOME THIS SHIFT WITH DAUGHTER KATINA TO DRIVE. L FLANK NEPHROSTOMY TUBE IN PLACE, COVERED WITH TELFA AND TEGADERM, DRAINING YELLOW CLOUDY URINE. PATIENT ANXIOUS ENTIRE SHIFT REGARDING DISCHARGING IN TIME TO BE WITH HIS WHO IS ON HOSPICE. MEDS CALLED AND FAXED TO [facility]. IV ERTAPENUM GIVEN PRIOR TO DISCHARGE. DISCHARGE PACKET GIVEN AND REVIEWED VERBALLY WITH PATIENT AND DAUGHTER, VERBALIZED UNDERSTANDING. IV REMOVED PRIOR TO DISCHARGE WITHOUT COMPLICATION.
== END 2024-02-03 12:22 | disposition home or self-care (01) | DRG 689 ==
LOC: ER 09:23 → MEDS 15:32
PROVIDERS: Emergency Medicine; ADMIT Family Medicine
DX: N39.0 Urinary tract infection, site not specified (principal); U07.1 COVID-19; Z16.12 Extended spectrum beta lactamase (ESBL) resistance; N18.30 Chronic kidney disease, stage 3 unspecified; I48.0 Paroxysmal atrial fibrillation; I25.10 Atherosclerotic heart disease of native coronary artery without angina pectoris; I12.9 Hypertensive chronic kidney disease with stage 1 through stage 4 chronic kidney disease, or unspecified chronic kidney disease; G47.30 Sleep apnea, unspecified; N40.0 Benign prostatic hyperplasia without lower urinary tract symptoms; K21.9 Gastro-esophageal reflux disease without esophagitis; R54 Age-related physical debility; M10.9 Gout, unspecified; G47.33 Obstructive sleep apnea (adult) (pediatric); E11.40 Type 2 diabetes mellitus with diabetic neuropathy, unspecified; I95.9 Hypotension, unspecified; Z66 Do not resuscitate; Z87.442 Personal history of urinary calculi; D63.1 Anemia in chronic kidney disease; D50.9 Iron deficiency anemia, unspecified; Z90.89 Acquired absence of other organs; Z98.890 Other specified postprocedural states; Z95.5 Presence of coronary angioplasty implant and graft; Z93.6 Other artificial openings of urinary tract status; Z88.0 Allergy status to penicillin; Z88.5 Allergy status to narcotic agent; Z79.82 Long term (current) use of aspirin; Z79.899 Other long term (current) drug therapy; Z79.01 Long term (current) use of anticoagulants; Z87.891 Personal history of nicotine dependence; I25.2 Old myocardial infarction
CPT/HCPCS: 0241U; 36415; 36430; 71045; 74176; 80048; 80053; 81001; 82272; 82607; 82728; 82746; 83540; 83550; 83605; 83735; 83880; 84484; 85014; 85018; 85025; 86850; 86900; 86901; 86923; 87077; 87086; 87186; 93005; 93010; 94760; 96374; 97110; 97161; 97530; 99285-25; A9270; J0696; J1335; J1650; J7030; J7120; P9016

== ENCOUNTER 2024-03-10 07:34 | Day surgery (SDC) | payer OTHER ==
[~2024-03-10] VITALS: Ht 177.8 cm; Wt 63.5 kg
[~2024-03-10 07:34] MED LIST changes: +NITR100CA PO; +PANT40 PO
[2024-03-10] MEDS ORDERED: Lactated Ringer's 1,000 ML IV ONE ×3 (07:50→08:40)
[2024-03-10] MEDS ORDERED: GABA800 (08:02)
[2024-03-10] MEDS ORDERED: HYDCHL50 (08:03)
[2024-03-10] MEDS ORDERED: METO25ER (08:05)
[2024-03-10] MEDS ORDERED: Lidocaine HCl 4% 5 ML SDA ONE (08:27)
[2024-03-10] MEDS ORDERED: propofoL 50 ML IV ONE (08:44)
--- NOTE | 2024-03-10 08:48 | NUR ---
03/10/24 0848 Marly Hurtado PER PT. HAS NEPHROSTOMY TUBE STRAPPED TO HIS CHEST, PER PT. WAS CHANGED YESTERDAY.
[2024-03-10 10:12] VITALS: BP 116/62
== END 2024-03-10 10:04 | disposition home or self-care (01) ==
LOC: ORSCSDS 07:34
PROVIDERS: Specialist
PROC: 0D758ZZ Dilation of Esophagus, Via Natural or Artificial Opening Endoscopic (ICD-10-PCS; principal; 2024-03-10 08:45)
DX: R13.10 Dysphagia, unspecified (principal); I48.91 Unspecified atrial fibrillation; I25.10 Atherosclerotic heart disease of native coronary artery without angina pectoris; E78.5 Hyperlipidemia, unspecified; A49.02 Methicillin resistant Staphylococcus aureus infection, unspecified site; K44.9 Diaphragmatic hernia without obstruction or gangrene; G47.33 Obstructive sleep apnea (adult) (pediatric); N18.30 Chronic kidney disease, stage 3 unspecified; Z79.02 Long term (current) use of antithrombotics/antiplatelets; Z79.899 Other long term (current) drug therapy
CPT/HCPCS: 82947; C1769; J2001; J2003; J2704; J7120

== ENCOUNTER 2024-04-04 16:23 | Emergency (ER) | payer OTHER ==
[~2024-04-04] VITALS: Ht 177.8 cm; Wt 63.5 kg
[~2024-04-04 16:23] MED LIST changes: +GABA800; +HYDCHL50; +METO25ER
[2024-04-04 17:22] LABS: BASOPHILS ABSOLUTE AUTO 0.02 K/mm3 (0.00-0.23); BASOPHILS PERCENT AUTO 0 % (0-2); EOSINOPHILS ABSOLUTE AUTO 0.16 K/mm3 (0.00-0.68); EOSINOPHILS PERCENT AUTO 3 % (0-6); Hematocrit 32.2 % (37.0-53.0); Hemoglobin 10.4 g/dL (13.5-17.5); IMMATURE GRAN ABSOLUTE AUTO 0.01 K/mm3 (0.00-0.10); IMMATURE GRAN PERCENT AUTO 0 % (0-1); LYMPHOCYTES ABSOLUTE AUTO 1.07 K/mm3 (0.84-5.20); LYMPHOCYTES PERCENT AUTO 19 % (21-46); MONOCYTES PERCENT AUTO 9 % (4-13); Mean Corpuscular HGB 30.8 pg (26.0-34.0); Mean Corpuscular HGB Conc 32.3 g/dL (31.5-36.5); Mean Corpuscular Volume 95 fL (80-100); Mean Platelet Volume 9.5 fL (9.1-12.4); NEUTROPHILS ABSOLUTE AUTO 3.81 K/mm3 (1.96-9.15); NEUTROPHILS PERCENT AUTO 68 % (41-73); Platelet Count 154 K/mm3 (150-400); RDW Coefficient Variation 19.6 % (11.7-14.2); RDW Standard Deviation 68.8 fL (35.1-46.3); Red Blood Cell Count 3.38 M/mm3 (4.30-5.90); White Blood Cell Count 5.57 K/mm3 (4.00-11.30)
[2024-04-04 17:43] LABS: Albumin, Blood 3.5 g/dL (3.4-5.0); Bilirubin, Total 0.5 mg/dL (0.1-1.0); Bun/Creatinine Ratio 24.4 (12.0-20.0); Calcium, Blood 8.7 mg/dL (8.5-10.1); Creatinine, Blood 1.35 mg/dL (0.60-1.20); Globulin, Blood 3.4 g/dL (2.2-4.0); Potassium, Blood 4.6 mmol/L (3.5-5.5); Total Protein, Blood 6.9 g/dL (6.4-8.2)
[2024-04-04 21:00] VITALS: BP 121/67
[2024-04-04] MEDS ORDERED: Cephalexin Monohydrate 500 MG Cap PO ONE (21:20)
[2024-04-04] MEDS ORDERED: CEPH500 PO (21:26)
== END 2024-04-04 21:45 | disposition home or self-care (01) ==
LOC: ER 16:23
PROVIDERS: Emergency Medicine
DX: N99.528 Other complication of incontinent external stoma of urinary tract (principal); L03.312 Cellulitis of back [any part except buttock and flank]; I48.0 Paroxysmal atrial fibrillation; N18.30 Chronic kidney disease, stage 3 unspecified; I12.9 Hypertensive chronic kidney disease with stage 1 through stage 4 chronic kidney disease, or unspecified chronic kidney disease; E11.22 Type 2 diabetes mellitus with diabetic chronic kidney disease; G47.30 Sleep apnea, unspecified; Z88.0 Allergy status to penicillin; Z88.5 Allergy status to narcotic agent; Z79.899 Other long term (current) drug therapy; Z87.891 Personal history of nicotine dependence
CPT/HCPCS: 74018; 76770; 80053; 85025; 99284-25; A9270

== ENCOUNTER 2024-09-05 08:43 | Inpatient (IN) | payer OTHER ==
[~2024-09-05] VITALS: Ht 177.8 cm; Wt 79.0 kg
[2024-09-05 09:10] LABS: BASOPHILS ABSOLUTE AUTO 0.01 K/mm3 (0.00-0.23); BASOPHILS PERCENT AUTO 0 % (0-2); EOSINOPHILS ABSOLUTE AUTO 0.03 K/mm3 (0.00-0.68); EOSINOPHILS PERCENT AUTO 1 % (0-6); Hematocrit 30.2 % (37.0-53.0); Hemoglobin 9.8 g/dL (13.5-17.5); IMMATURE GRAN ABSOLUTE AUTO 0.02 K/mm3 (0.00-0.10); IMMATURE GRAN PERCENT AUTO 0 % (0-1); LYMPHOCYTES ABSOLUTE AUTO 0.52 K/mm3 (0.84-5.20); LYMPHOCYTES PERCENT AUTO 10 % (21-46); MONOCYTES ABSOLUTE AUTO 0.09 K/mm3 (0.16-1.47); MONOCYTES PERCENT AUTO 2 % (4-13); Mean Corpuscular HGB 33.4 pg (26.0-34.0); Mean Corpuscular HGB Conc 32.5 g/dL (31.5-36.5); Mean Corpuscular Volume 103 fL (80-100); Mean Platelet Volume 9.7 fL (9.1-12.4); NEUTROPHILS ABSOLUTE AUTO 4.71 K/mm3 (1.96-9.15); NEUTROPHILS PERCENT AUTO 87 % (41-73); Platelet Count 136 K/mm3 (150-400); RDW Standard Deviation 52.8 fL (35.1-46.3); Red Blood Cell Count 2.93 M/mm3 (4.30-5.90); White Blood Cell Count 5.38 K/mm3 (4.00-11.30)
[2024-09-05 09:22] LABS: Source, Urine Straight Cath
[2024-09-05 09:27] LABS: Appearance, Urine Cloudy (Clear); Blood, Urine 4+ (Neg); Color, Urine Amber (P-Yellow); Glucose Qualitative, Urine Neg (Neg); Ketones, Urine Neg (Neg); Leukocyte Esterase, Urine 3+ (Neg); Nitrite, Urine Pos (Neg); Protein, Urine 3+ (Neg); Urobilinogen, Urine 3+ (Normal)
[2024-09-05 09:31] LABS: Bilirubin, Urine 2+ (Neg)
[2024-09-05 09:33] LABS: Albumin, Blood 3.2 g/dL (3.4-5.0); Bilirubin, Total 1.4 mg/dL (0.1-1.0); Bun/Creatinine Ratio 19.5 (12.0-20.0); Calcium, Blood 8.3 mg/dL (8.5-10.1); Creatinine, Blood 1.74 mg/dL (0.60-1.20); Globulin, Blood 3.3 g/dL (2.2-4.0); Magnesium, Blood 1.6 mg/dL (1.6-2.4); Potassium, Blood 4.4 mmol/L (3.5-5.5); Total Protein, Blood 6.5 g/dL (6.4-8.2)
[2024-09-05 09:35] LABS: Red Blood Cells, Urine 50-100 /hpf (0-2); Squamous Epithelial Cells Not Seen /hpf (Few)
[2024-09-05 09:36] LABS: Bacteria Many /hpf
[2024-09-05] MEDS ORDERED: Cefepime HCl 2,000 MG in NS 100 ML IV ONE (09:40)
[2024-09-05] MEDS ORDERED: NS 1,000 ML IV SCH (09:40)
[2024-09-05 11:44] LABS: Influenza A, PCR NEGATIVE (NEGATIVE); Influenza B, PCR NEGATIVE (NEGATIVE); Resp Syncytial Virus, PCR NEGATIVE (NEGATIVE); SARS-Cov-2 (COVID-19) PCR, MMC NEGATIVE (NEGATIVE)
[2024-09-05] MEDS ORDERED: Prochlorperazine Edisylate 10 mg Vial IV PRN (13:00)
[2024-09-05] MEDS ORDERED: Lactated Ringer's 1,000 ML IV SCH (13:00)
[2024-09-05] MEDS ORDERED: Ciprofloxacin 400MG/D5 200ML 200 ML IV SCH (13:18)
[2024-09-05] MEDS ORDERED: Meropenem 1,000 MG in NS 100 ML IV SCH ×2 (13:19→16:00)
[2024-09-05] MEDS ORDERED: NS 1,000 ML IV ONE (13:30)
[2024-09-05] MEDS ORDERED: GABA400 PO (16:02)
[2024-09-05] MEDS ORDERED: GABA800 PO (16:05)
[2024-09-05 16:08] VITALS: BP 97/64
--- NOTE | 2024-09-05 18:09 | NUR ---
PT ARRIVED IN THE UNIT VIA GURNEY. ABLE TO TRANSFER VIA SLIDER SHEET. PT IS ALERT AND ORIENTED X3-4 FORGETFUL AT TIMES. VITALS HRR SR/ST 90-110S, SBP 90-110S MAP >6'S, SATS ABOVE 95% ON 2L, TEMP 99.1. LR RUNNING AT 150MLS/HR. PT WAS INCONTINET OF URINE AND BOWEL, PT HAD LOOSE BM PER ER NURSE NONE YET SINCE ARRIVAL, PT HAS RETENTION ISSUES ABLE TO VOID VERY OFTEN WITH SMALL AMOUNTS OF URINE, URINE DARK YELLOW/ORANGE IN COLOR. CAREGIVER WAS AT THE BEDSIDE FOR SHORT PERIOD. PT ABLE TO EAT DINNER DIET SWITCHED TO SOFT BITTE SIZE PT DOESNT HAVE DENTURES IN PLACE WAS LEFT AT HOME. PT HAS BEEN COUGHING UP WHITE YELLOW SPUTUM PT ABLE TO SUCTION SELF. NO OTHER ISSUES REPORTED FOR THE SHIFT, PT HAS BEEN CALLING APPROPRIATELY, BED ALARM FOR SAFETY WILL REPORT TO ONCOMING SHIFT
[2024-09-05 19:15] VITALS: BP 105/68
[2024-09-05] MEDS ORDERED: Lactobacil 2-S.Thermo-Bifido 1 1 Cap PO SCH (21:00)
[2024-09-05] MEDS ORDERED: Gabapentin 300 MG Cap PO SCH (21:37)
[2024-09-05 22:01] LABS: Glucose, Blood 93 mg/dL (70-99)
[2024-09-06] VITALS (13 sets, daily range): BP systolic 83–131; BP diastolic 53–108
[2024-09-06] MEDS ORDERED: Acetaminophen 325 MG TABLET PO PRN (02:55)
[2024-09-06] MEDS ORDERED: Lidocaine HCl 4% Cream 5 GM TOP PRN (03:00)
[2024-09-06 03:39] LABS: BASOPHILS ABSOLUTE AUTO 0.02 K/mm3 (0.00-0.23); BASOPHILS PERCENT AUTO 0 % (0-2); EOSINOPHILS ABSOLUTE AUTO 0.07 K/mm3 (0.00-0.68); EOSINOPHILS PERCENT AUTO 1 % (0-6); Hematocrit 26.6 % (37.0-53.0); Hemoglobin 8.1 g/dL (13.5-17.5); IMMATURE GRAN ABSOLUTE AUTO 0.03 K/mm3 (0.00-0.10); IMMATURE GRAN PERCENT AUTO 0 % (0-1); LYMPHOCYTES ABSOLUTE AUTO 0.75 K/mm3 (0.84-5.20); LYMPHOCYTES PERCENT AUTO 6 % (21-46); MONOCYTES ABSOLUTE AUTO 1.18 K/mm3 (0.16-1.47); MONOCYTES PERCENT AUTO 10 % (4-13); Mean Corpuscular HGB 32.3 pg (26.0-34.0); Mean Corpuscular HGB Conc 30.5 g/dL (31.5-36.5); Mean Corpuscular Volume 106 fL (80-100); NEUTROPHILS ABSOLUTE AUTO 9.64 K/mm3 (1.96-9.15); NEUTROPHILS PERCENT AUTO 82 % (41-73); Platelet Count 114 K/mm3 (150-400); Red Blood Cell Count 2.51 M/mm3 (4.30-5.90); White Blood Cell Count 11.69 K/mm3 (4.00-11.30)
[2024-09-06 04:06] LABS: Albumin, Blood 2.3 g/dL (3.4-5.0); Albumin/Globulin Ratio 0.8 (0.8-1.8); Bilirubin, Total 0.8 mg/dL (0.1-1.0); Bun/Creatinine Ratio 18.2 (12.0-20.0); Calcium, Blood 7.2 mg/dL (8.5-10.1); Creatinine, Blood 1.87 mg/dL (0.60-1.20); Globulin, Blood 2.8 g/dL (2.2-4.0); Potassium, Blood 4.6 mmol/L (3.5-5.5); Total Protein, Blood 5.1 g/dL (6.4-8.2)
--- NOTE | 2024-09-06 05:56 | NUR ---
SHIFT SUMMARY - PT A/OX4, PLEASANT AND COOPERATIVE WITH CARE. HE ENDORSED NEUROPATHIC PAIN, STATED HE USES A CREAM AT HOME THAT DOESN'T WORK VERY WELL AND COMPLAINED OF 10/10 PAIN. MD NOTIFIED, SEE NEW ORDERS. VSS, BPS SOFT IN 90'S SYSTOLIC. PT HAD FEW LOW GRADE FEVERS OF 100.0-100.8, TREATED PER AUG. SATS ABOVE 90% ON ROOM AIR. PUREWICK IN PLACE AND DRAINING TO SUCTION. URINE IS DARK, CONCENTRATED AND FOAMY. PT HAS SCATTERED SCABS AND BRUISING THROUGHOUT. NO ACUTE EVENTS THIS SHIFT.
[2024-09-06] MEDS ORDERED: Enoxaparin 30 MG/0.3 ML SYR SC SCH (09:00)
[2024-09-06] MEDS ORDERED: Lactated Ringer's 1,000 ML IV SCH (09:30)
[2024-09-06] MEDS ORDERED: GuaiFENesin 600 MG TabCR PO SCH (09:35)
[2024-09-06] MEDS ORDERED: PHENA200 PO (12:08)
[2024-09-06] MEDS ORDERED: IRBE75 PO (12:09)
[2024-09-06] MEDS ORDERED: NITR100CA PO (12:09)
--- NOTE | 2024-09-06 12:17 | NUR ---
UPDATED CODE STATUS AND RECONCILLED MEDICATIONS, CAREGIVER BROUGHT IN POLST AND HOME MEDICATION LIST, PRIMARY RN NOTIFIED MD.
[2024-09-06] MEDS ORDERED: Midodrine 5 MG Tab PO SCH (13:00)
[2024-09-06] MEDS ORDERED: Meropenem 1,000 MG in NS 100 ML IV SCH (16:30)
--- NOTE | 2024-09-06 17:27 | NUR ---
SHIFT SUMMARY- PT A/OX4, PLEASANT AND COOPERATIVE WITH CARE. STATES SOME PAIN IN LEGS, MEDICATED PER EMAR. PT REMAINED AFEBRILE T/O SHIFT. SINUS RYTHM IN THE 70'S-80'S. BP SOFT AT BEGGINING OF SHIFT WITH SYSTOLIC IN THE 80S-90S. MIDODRINE. GIVEN TO INCREASE B/P. PRIMARY RN NOTIFIED MD AND OBTAINED ORDER FOR LR. CURRENT BP IS 105/53(70). WEANED OT OFF TODAY, PT SATTING ABOVE 95% ON ROOM AIR. OCCASIONAL PRODUCTIVE COUGH, SPUTUM CULTURE OBTAINED. PUREWICK IN PLACE, OUTPUT IS ORANGE AND FROTHY. NO LOOSE STOOLS T/O SHIFT. NO BM MOVEMENT TODAY. SOME SCABS FROM BIOPSY. PT WAS UP TO CHAIR FOR MEALS 1XFWW. PLAN IS FOR POSSIBLE D/C SUNDAY WILL REPORT TO ONCOMING SHIFT
[2024-09-06] MEDS ORDERED: AMIT TOP PRN (18:00)
[2024-09-06] MEDS ORDERED: LIDOCAINE TOP PRN (18:00)
[2024-09-06] MEDS ORDERED: GABAPENTIN TOP PRN (18:00)
[2024-09-06] MEDS ORDERED: DICLOFENAC TOP PRN (18:00)
[2024-09-06] MEDS ORDERED: PENTOX TOP PRN (18:00)
[2024-09-06] MEDS ORDERED: CLONIDINE TOP PRN (18:00)
--- NOTE | 2024-09-06 20:00 | NUR ---
PT REPORTS HE IS HALLUCINATING AND SEEING A WINDOW IN FRONT OF HIM WITH RAIN. HE STATES HE IS ALSO SEEING BUGS AND PEOPLE THAT HE KNOWS AREN'T THERE. SAYS THIS HAPPENED TO HIM LAST TIME HE WAS ADMITTED TO THE HOSPITAL. NEURO EXAM REVEALED NO OTHER ABNORMALITIES, PT IS ALERT AND ORIENTED TO PERSON, PLACE, SELF, AND SITUATION. PRIORITIZING SLEEP AND MINIMIZING DISRUPTIONS AT THIS TIME.
[2024-09-06] MEDS ORDERED: Melatonin 5 MG Tablet PO PRN (22:50)
[2024-09-07 03:50] VITALS: BP 129/69
[2024-09-07 04:03] LABS: BASOPHILS ABSOLUTE AUTO 0.01 K/mm3 (0.00-0.23); BASOPHILS PERCENT AUTO 0 % (0-2); EOSINOPHILS PERCENT AUTO 3 % (0-6); Hematocrit 26.1 % (37.0-53.0); Hemoglobin 8.5 g/dL (13.5-17.5); IMMATURE GRAN ABSOLUTE AUTO 0.02 K/mm3 (0.00-0.10); IMMATURE GRAN PERCENT AUTO 0 % (0-1); LYMPHOCYTES ABSOLUTE AUTO 0.62 K/mm3 (0.84-5.20); LYMPHOCYTES PERCENT AUTO 9 % (21-46); MONOCYTES ABSOLUTE AUTO 0.52 K/mm3 (0.16-1.47); MONOCYTES PERCENT AUTO 7 % (4-13); Mean Corpuscular HGB 32.9 pg (26.0-34.0); Mean Corpuscular HGB Conc 32.6 g/dL (31.5-36.5); Mean Platelet Volume 9.4 fL (9.1-12.4); NEUTROPHILS ABSOLUTE AUTO 5.64 K/mm3 (1.96-9.15); NEUTROPHILS PERCENT AUTO 81 % (41-73); Platelet Count 110 K/mm3 (150-400); RDW Standard Deviation 51.6 fL (35.1-46.3); Red Blood Cell Count 2.58 M/mm3 (4.30-5.90); White Blood Cell Count 7.01 K/mm3 (4.00-11.30)
[2024-09-07 04:06] LABS: Mean Corpuscular Volume 101 fL (80-100)
[2024-09-07 04:22] LABS: Bun/Creatinine Ratio 19.4 (12.0-20.0); Calcium, Blood 7.6 mg/dL (8.5-10.1); Creatinine, Blood 1.75 mg/dL (0.60-1.20); Potassium, Blood 4.4 mmol/L (3.5-5.5)
--- NOTE | 2024-09-07 05:58 | NUR ---
SHIFT SUMMARY PT A/OX4, BUT DID REPORT HALLUCINATIONS, SEE PREVIOUS NOTE. PT REPORTED NEUROPATHIC PAIN. HE SLEPT MOST OF THE SHIFT, BUT WOULD WAKE UP TO REPORT THAT HE COULDN'T SLEEP. VSS, PT ON RA, SATS ABOVE 90%. NO ACUTE EVENTS THIS SHIFT.
[2024-09-07 07:36] VITALS: BP 129/66
--- NOTE | 2024-09-07 11:40 | NUR ---
PT DISCHARGED TO HOME WITH DISCHARGE ORDERS. PT'S FATHER AT THE BEDSIDE WHILE DISCLSING DISCHARGE INFORMTATION. PT TO CONTINUE TAKING BOWEL CARE AT HOME, AND TO CONTINUE CURRENT PAIN MANAGEMENT AT HOME, AND TO FF-UP WITH PCP OUTPT. VITALS HAS BEEN STABLE. ABLE TO AMBULATE INDEPENDENTLY TO THE BATHROOM. ALL BELONGINGS SENT WITH THE PT INCLUDING HOME MEDS. ACCOMPANIED VIA WHEELCHAIR FOR TRANSPORT
[2024-09-07] MEDS ORDERED: Phenazopyridine HCl 100 MG Tab PO ONE (12:00)
[2024-09-07] MEDS ORDERED: Phenazopyridine HCl 100 MG Tab PO PRN (12:00)
[2024-09-07 12:01] VITALS: BP 112/55
[2024-09-07 16:26] VITALS: BP 124/67
--- NOTE | 2024-09-07 17:47 | NUR ---
PT SUMMARY; NO ACUTE CHANGE FOR THE SHIFT. PT TO DISCHARGE TO HOME TOMORROW [facility]. POWERGLIDE PLACED ON JACQUELINE. UA CULTURE RESULTED REPORTD TO . PT CONTINUES ON IV MEROPENEM. URINE NOW YELLOW AND IS CLOUDY, 70MLS URNE OUT FOR TE SHIFT, PUREWICK REMAINED IN PLACE. PT HAS BEEN GETTING UP AND USING BSC FOR TOILETING. CAREGIVER AT BEDSIDE AWARE OF THE PLAN OF CARE. NO OTHER ISSUES ENCOUNTERED VITALS HAS BEEN STABLE. WILL REPORT TO ONCOMING SHIFT
[2024-09-07] MEDS ORDERED: Midodrine 5 MG Tab PO SCH (18:00)
[2024-09-07 20:16] VITALS: BP 126/61
[2024-09-08] MEDS ORDERED: ALLO300 PO (02:11)
[2024-09-08] MEDS ORDERED: MUPIROCIN2210 TOP (02:11)
[2024-09-08] MEDS ORDERED: Neurontin800 MG PO (02:13)
[2024-09-08] MEDS ORDERED: TAMSULOSIN HCL0.4 M1 PO (02:13)
[2024-09-08 04:15] VITALS: BP 106/63
[2024-09-08 04:43] LABS: Hematocrit 25.3 % (37.0-53.0); Hemoglobin 8.3 g/dL (13.5-17.5); Mean Corpuscular HGB 32.5 pg (26.0-34.0); Mean Corpuscular HGB Conc 32.8 g/dL (31.5-36.5); Mean Corpuscular Volume 99 fL (80-100); Mean Platelet Volume 10.1 fL (9.1-12.4); Platelet Count 123 K/mm3 (150-400); RDW Standard Deviation 50.3 fL (35.1-46.3); Red Blood Cell Count 2.55 M/mm3 (4.30-5.90); White Blood Cell Count 4.09 K/mm3 (4.00-11.30)
[2024-09-08 05:09] LABS: Albumin, Blood 2.3 g/dL (3.4-5.0); Anion Gap 7 mmol/L (3-11); Blood Urea Nitrogen 27 mg/dL (8-24); CO2, Blood 21 mmol/L (21-32); Calcium, Blood 7.7 mg/dL (8.5-10.1); Chloride, Blood 117 mmol/L (98-108); Creatinine, Blood 1.35 mg/dL (0.60-1.20); Glomerular Filtration Rate 51 (60-); Glucose, Blood 86 mg/dL (70-99); Phosphorus, Blood 2.8 mg/dL (2.5-4.9); Potassium, Blood 4.4 mmol/L (3.5-5.5); Sodium, Blood 141 mmol/L (136-145)
--- NOTE | 2024-09-08 06:32 | NUR ---
SHIFT SUMMARY: PT IS A&OX3-4, FORGETFUL AT TIMES, BIG SANDY, PLEASANT AND APPRECIATIVE OF CARE. VSS ON RA. PT SLEPT T/O THE NOC. C/O PAIN TO HIS HEELS, APPLIED HIS MEDICATED HOME CREAM. ALSO HAS BACK PAIN 11/11, MEDICATED WITH PRN 650MG TYLENOL. X1 WITH FWW TO BSC/CHAIR, PT STATES HE IS WHEELCHAIR BOUND AT BASELINE, NOOB THIS SHIFT. TOLERATING A MINCED AND MOIST DIET. TAKES HIS PILLS WHOLE, ONE AT A TIME WITH APPLESAUCE. WICKING SYSTEM IN PLACE DRAINING LARGE AMOUNTS OF CLEAR YELLOW URINE. NO BM THIS SHIFT. LOOKING FORWARD TO GOING HOME TODAY. CONTACT PRECAUTIONS MAINTAINED. BED IN LOWEST POSITION, CALL LIGHT WITHIN REACH. CALLS APPROPRIATELY AND IS ABLE TO ADVOCATE NEEDS EFFECTIVELY.
[2024-09-08 07:39] VITALS: BP 113/68
[2024-09-08] MEDS ORDERED: Aspirin 81 MG Chew PO SCH (09:00)
[2024-09-08] MEDS ORDERED: Clopidogrel Bisulfate 75 MG Tab PO SCH (09:00)
[2024-09-08] MEDS ORDERED: Cholecalciferol 1000 Unit Tablet (=25MCG) PO SCH (09:00)
[2024-09-08] MEDS ORDERED: Cyanocobalamin 500 MCG Tab PO SCH (09:00)
[2024-09-08 11:41] VITALS: BP 120/58
[2024-09-08] MEDS ORDERED: ACET325 PO (12:39)
[2024-09-08] MEDS ORDERED: GUAI600T33 PO (12:41)
[2024-09-08] MEDS ORDERED: MELATONIN5 M1 PO (12:44)
[2024-09-08] MEDS ORDERED: ANECREAM515 G1 TOP (12:46)
[2024-09-08] MEDS ORDERED: VISBIOME 112.51 EACH PO (12:47)
[2024-09-08] MEDS ORDERED: LEVOFLOXACIN500 M1 PO (14:22)
[2024-09-08] MEDS ORDERED: ERTAPENEM1 G6 IV (14:23)
--- NOTE | 2024-09-08 16:03 | NUR ---
DISCHARGE SUMMARY: PATIENT IS ALERT AND ORIENTED X 4, DISCHARGE INSTRUCTIONS EDUCATION PROVIDED TO PATIENT AND CAREGIVER WHO WAS AT BEDSIDE. ALL EDUCATION UNDERSTOOD. MEDICATIONS SENT TO [facility]. PATIENT DENIES CHEST PAIN PRESSURE OR SOB AT REST. PATIENT IN NO ACUTE DISTRESS. POWERGLIDE LEFT IN PLACE DUE TO [facility] NEEDS FOR 7 DAYS. MEREM DOSE FOR 1600 COMPLETE AT TIME OF DISCHARGE. PATIENT WITH NO ACUTE CONCERNS. WHEELED PATIENT OUT VIA WC AND HE DID NOT NEED ANY ASSISTANCE INTO VEHICLE.
[2024-09-08] MEDS ORDERED: Atorvastatin 40 MG Tab PO SCH (21:00)
[2024-09-09] MEDS ORDERED: Enoxaparin 40 MG/0.4 ML SYR SC SCH (09:00)
== END 2024-09-08 15:13 | disposition home or self-care (01) | DRG 872 ==
LOC: ER 08:43 → PCU 12:56
PROVIDERS: Emergency Medicine; Internal Medicine; Student in an Organized Health Care Education/Training Program; ADMIT Internal Medicine
DX: A41.89 Other specified sepsis (principal); N39.0 Urinary tract infection, site not specified; E87.20 Acidosis, unspecified; I50.32 Chronic diastolic (congestive) heart failure; N17.9 Acute kidney failure, unspecified; Z16.12 Extended spectrum beta lactamase (ESBL) resistance; I13.0 Hypertensive heart and chronic kidney disease with heart failure and stage 1 through stage 4 chronic kidney disease, or unspecified chronic kidney disease; I25.811 Atherosclerosis of native coronary artery of transplanted heart without angina pectoris; R65.20 Severe sepsis without septic shock; Z87.442 Personal history of urinary calculi; I25.2 Old myocardial infarction; G47.33 Obstructive sleep apnea (adult) (pediatric); F32.A Depression, unspecified; D63.1 Anemia in chronic kidney disease; I48.0 Paroxysmal atrial fibrillation; E11.22 Type 2 diabetes mellitus with diabetic chronic kidney disease; N18.32 Chronic kidney disease, stage 3b; D50.9 Iron deficiency anemia, unspecified; N40.0 Benign prostatic hyperplasia without lower urinary tract symptoms; E11.40 Type 2 diabetes mellitus with diabetic neuropathy, unspecified; Z95.5 Presence of coronary angioplasty implant and graft; Z98.890 Other specified postprocedural states; Z87.891 Personal history of nicotine dependence; Z88.0 Allergy status to penicillin; Z88.5 Allergy status to narcotic agent; Z79.82 Long term (current) use of aspirin; Z79.02 Long term (current) use of antithrombotics/antiplatelets; Z79.899 Other long term (current) drug therapy; Z86.16 Personal history of COVID-19; Z93.6 Other artificial openings of urinary tract status
CPT/HCPCS: 0241U; 36415; 51701; 71045; 74177; 80048; 80053; 80069; 81001; 82947; 83605; 83735; 83880; 84484; 85025; 85027; 87070; 87077; 87086; 87186; 87205; 93005; 93010; 94760; 96361; 96365-59; 99285-25; A9270; J0692; J0744; J1650; J2185; J7030; J7120; Q9967

== ENCOUNTER 2024-09-09 14:12 | Day surgery (SDC) | payer OTHER ==
[~2024-09-09 14:12] MED LIST changes: +ACET325 PO; +ANECREAM515 G1 TOP; +ERTAPENEM1 G6 IV; +Ertapenem Sodium 1,000 MG in NS 50 ML IV SCH; +GABA400 PO; +GABA800 PO; +GUAI600T33 PO; +IRBE75 PO; +LEVOFLOXACIN500 M1 PO; +MELATONIN5 M1 PO; +MUPIROCIN2210 TOP; +PHENA200 PO
[2024-09-09 14:27] VITALS: BP 131/63
== END 2024-09-09 14:55 | disposition home or self-care (01) ==
LOC: ATC 14:12
DX: N39.0 Urinary tract infection, site not specified (principal); B96.20 Unspecified Escherichia coli [E. coli] as the cause of diseases classified elsewhere; I48.0 Paroxysmal atrial fibrillation; I25.10 Atherosclerotic heart disease of native coronary artery without angina pectoris; I13.0 Hypertensive heart and chronic kidney disease with heart failure and stage 1 through stage 4 chronic kidney disease, or unspecified chronic kidney disease; N18.32 Chronic kidney disease, stage 3b; I50.30 Unspecified diastolic (congestive) heart failure; E11.22 Type 2 diabetes mellitus with diabetic chronic kidney disease; G47.33 Obstructive sleep apnea (adult) (pediatric); E11.40 Type 2 diabetes mellitus with diabetic neuropathy, unspecified; M10.9 Gout, unspecified; Z16.12 Extended spectrum beta lactamase (ESBL) resistance; Z79.899 Other long term (current) drug therapy; Z87.891 Personal history of nicotine dependence; Z88.0 Allergy status to penicillin; Z88.5 Allergy status to narcotic agent
CPT/HCPCS: 96365; J1335

== ENCOUNTER 2024-09-10 02:41 | Day surgery (SDC) | payer OTHER ==
[2024-09-10 14:20] VITALS: BP 126/62
== END 2024-09-10 14:40 | disposition home or self-care (01) ==
LOC: ATC 02:41
DX: N39.0 Urinary tract infection, site not specified (principal); B96.1 Klebsiella pneumoniae [K. pneumoniae] as the cause of diseases classified elsewhere; I25.10 Atherosclerotic heart disease of native coronary artery without angina pectoris; G47.33 Obstructive sleep apnea (adult) (pediatric); E11.40 Type 2 diabetes mellitus with diabetic neuropathy, unspecified; E11.22 Type 2 diabetes mellitus with diabetic chronic kidney disease; I13.0 Hypertensive heart and chronic kidney disease with heart failure and stage 1 through stage 4 chronic kidney disease, or unspecified chronic kidney disease; N18.30 Chronic kidney disease, stage 3 unspecified; I50.30 Unspecified diastolic (congestive) heart failure; I48.0 Paroxysmal atrial fibrillation; Z16.12 Extended spectrum beta lactamase (ESBL) resistance
CPT/HCPCS: 96365; J1335

== ENCOUNTER 2024-09-11 04:05 | Day surgery (SDC) | payer OTHER ==
[~2024-09-11 04:05] MED LIST changes: -Ertapenem Sodium 1,000 MG in NS 50 ML IV SCH
[2024-09-11] MEDS ORDERED: Ertapenem Sodium 1,000 MG in NS 50 ML IV SCH (06:00)
[2024-09-11 14:12] VITALS: BP 127/66
== END 2024-09-11 14:36 | disposition home or self-care (01) ==
LOC: ATC 04:05
DX: N39.0 Urinary tract infection, site not specified (principal); B96.1 Klebsiella pneumoniae [K. pneumoniae] as the cause of diseases classified elsewhere; G47.33 Obstructive sleep apnea (adult) (pediatric); E78.5 Hyperlipidemia, unspecified; E11.40 Type 2 diabetes mellitus with diabetic neuropathy, unspecified; I48.0 Paroxysmal atrial fibrillation; I11.0 Hypertensive heart disease with heart failure; I50.30 Unspecified diastolic (congestive) heart failure; Z16.12 Extended spectrum beta lactamase (ESBL) resistance; Z79.899 Other long term (current) drug therapy; Z88.0 Allergy status to penicillin; Z88.5 Allergy status to narcotic agent
CPT/HCPCS: 96365; J1335

== ENCOUNTER 2024-09-12 03:55 | Day surgery (SDC) | payer OTHER ==
[~2024-09-12 03:55] MED LIST changes: +Ertapenem Sodium 1,000 MG in NS 50 ML IV SCH
[2024-09-12 14:27] VITALS: BP 113/79
== END 2024-09-12 14:44 | disposition home or self-care (01) ==
LOC: ATC 03:55
DX: N39.0 Urinary tract infection, site not specified (principal); Z16.12 Extended spectrum beta lactamase (ESBL) resistance; I13.0 Hypertensive heart and chronic kidney disease with heart failure and stage 1 through stage 4 chronic kidney disease, or unspecified chronic kidney disease; E11.22 Type 2 diabetes mellitus with diabetic chronic kidney disease; N18.32 Chronic kidney disease, stage 3b; I50.32 Chronic diastolic (congestive) heart failure; I25.10 Atherosclerotic heart disease of native coronary artery without angina pectoris; I48.0 Paroxysmal atrial fibrillation; E11.49 Type 2 diabetes mellitus with other diabetic neurological complication; E78.5 Hyperlipidemia, unspecified; G47.33 Obstructive sleep apnea (adult) (pediatric); N40.0 Benign prostatic hyperplasia without lower urinary tract symptoms; Z87.891 Personal history of nicotine dependence; Z88.0 Allergy status to penicillin; Z88.5 Allergy status to narcotic agent; Z79.82 Long term (current) use of aspirin; Z79.02 Long term (current) use of antithrombotics/antiplatelets; Z79.899 Other long term (current) drug therapy; Z95.5 Presence of coronary angioplasty implant and graft
CPT/HCPCS: 96365; J1335

== ENCOUNTER 2024-09-13 00:49 | Day surgery (SDC) | payer OTHER ==
[~2024-09-13 00:49] MED LIST changes: -Ertapenem Sodium 1,000 MG in NS 50 ML IV SCH
[2024-09-13] MEDS ORDERED: Ertapenem Sodium 1,000 MG in NS 50 ML IV SCH (01:00)
[2024-09-13 14:20] VITALS: BP 135/63
== END 2024-09-13 14:36 | disposition home or self-care (01) ==
LOC: ATC 00:49
DX: N39.0 Urinary tract infection, site not specified (principal); B96.1 Klebsiella pneumoniae [K. pneumoniae] as the cause of diseases classified elsewhere; I48.0 Paroxysmal atrial fibrillation; I13.0 Hypertensive heart and chronic kidney disease with heart failure and stage 1 through stage 4 chronic kidney disease, or unspecified chronic kidney disease; I50.30 Unspecified diastolic (congestive) heart failure; N18.32 Chronic kidney disease, stage 3b; E11.22 Type 2 diabetes mellitus with diabetic chronic kidney disease; Z16.12 Extended spectrum beta lactamase (ESBL) resistance
CPT/HCPCS: 96365; J1335

== ENCOUNTER 2024-09-14 01:22 | Day surgery (SDC) | payer OTHER ==
[~2024-09-14 01:22] MED LIST changes: +Ertapenem Sodium 1,000 MG in NS 50 ML IV SCH
== END 2024-09-14 14:43 | disposition home or self-care (01) ==
LOC: ATC 01:22
DX: N39.0 Urinary tract infection, site not specified (principal); Z16.12 Extended spectrum beta lactamase (ESBL) resistance; I10 Essential (primary) hypertension; E11.9 Type 2 diabetes mellitus without complications; E78.5 Hyperlipidemia, unspecified; I25.10 Atherosclerotic heart disease of native coronary artery without angina pectoris; I48.91 Unspecified atrial fibrillation; G47.33 Obstructive sleep apnea (adult) (pediatric); Z88.0 Allergy status to penicillin; Z88.5 Allergy status to narcotic agent; Z79.2 Long term (current) use of antibiotics; Z79.899 Other long term (current) drug therapy
CPT/HCPCS: 96365; J1335

== ENCOUNTER 2024-09-15 02:00 | Day surgery (SDC) | payer OTHER ==
[2024-09-15 14:24] VITALS: BP 126/64
== END 2024-09-15 14:44 | disposition home or self-care (01) ==
LOC: ATC 02:00
DX: N39.0 Urinary tract infection, site not specified (principal); B96.1 Klebsiella pneumoniae [K. pneumoniae] as the cause of diseases classified elsewhere; B96.5 Pseudomonas (aeruginosa) (mallei) (pseudomallei) as the cause of diseases classified elsewhere; I48.0 Paroxysmal atrial fibrillation; E11.49 Type 2 diabetes mellitus with other diabetic neurological complication; I25.10 Atherosclerotic heart disease of native coronary artery without angina pectoris; I13.0 Hypertensive heart and chronic kidney disease with heart failure and stage 1 through stage 4 chronic kidney disease, or unspecified chronic kidney disease; E11.22 Type 2 diabetes mellitus with diabetic chronic kidney disease; I50.30 Unspecified diastolic (congestive) heart failure; N18.32 Chronic kidney disease, stage 3b; I25.2 Old myocardial infarction; E78.5 Hyperlipidemia, unspecified; Z87.891 Personal history of nicotine dependence; Z88.0 Allergy status to penicillin; Z88.5 Allergy status to narcotic agent; Z79.82 Long term (current) use of aspirin; Z79.899 Other long term (current) drug therapy
CPT/HCPCS: 96365; J1335

== ENCOUNTER → 2025-01-05 | Outpatient (CLI) | payer OTHER ==
[~2025-01-05] MED LIST changes: -Ertapenem Sodium 1,000 MG in NS 50 ML IV SCH
== END ==
LOC: LAB 16:48 → LAB SHORT 16:48
DX: N39.0 Urinary tract infection, site not specified (principal)
CPT/HCPCS: 87077; 87086; 87147; 87186

== ENCOUNTER → 2025-01-26 | Outpatient (CLI) | payer OTHER | LOC: LAB 15:37 → LAB SHORT 15:37 | DX: N39.0 Urinary tract infection, site not specified (principal) | CPT/HCPCS: 87077; 87086; 87186 ==

== ENCOUNTER 2025-01-30 01:26 | Day surgery (SDC) | payer OTHER ==
[~2025-01-30 01:26] MED LIST changes: +Ertapenem Sodium 1,000 MG in NS 50 ML IV SCH
[2025-01-30 15:52] VITALS: BP 124/72
== END 2025-01-30 16:20 | disposition home or self-care (01) ==
LOC: ATC 01:26
DX: N39.0 Urinary tract infection, site not specified (principal); I12.9 Hypertensive chronic kidney disease with stage 1 through stage 4 chronic kidney disease, or unspecified chronic kidney disease; N18.31 Chronic kidney disease, stage 3a; D63.1 Anemia in chronic kidney disease; N25.81 Secondary hyperparathyroidism of renal origin; N40.0 Benign prostatic hyperplasia without lower urinary tract symptoms; Z88.5 Allergy status to narcotic agent; Z88.0 Allergy status to penicillin; Z79.02 Long term (current) use of antithrombotics/antiplatelets; Z79.899 Other long term (current) drug therapy; Z90.5 Acquired absence of kidney
CPT/HCPCS: 96365; J1335

== ENCOUNTER 2025-01-31 00:32 | Day surgery (SDC) | payer OTHER ==
[~2025-01-31 00:32] MED LIST changes: -Ertapenem Sodium 1,000 MG in NS 50 ML IV SCH
[2025-01-31] MEDS ORDERED: Ertapenem Sodium 1,000 MG in NS 50 ML IV SCH (01:00)
[2025-01-31 09:40] VITALS: BP 120/69
== END 2025-01-31 09:54 | disposition home or self-care (01) ==
LOC: ATC 00:32
DX: N39.0 Urinary tract infection, site not specified (principal); I12.9 Hypertensive chronic kidney disease with stage 1 through stage 4 chronic kidney disease, or unspecified chronic kidney disease; N18.31 Chronic kidney disease, stage 3a; N25.81 Secondary hyperparathyroidism of renal origin; D63.1 Anemia in chronic kidney disease; Z88.0 Allergy status to penicillin; Z88.5 Allergy status to narcotic agent; Z79.02 Long term (current) use of antithrombotics/antiplatelets; Z79.899 Other long term (current) drug therapy
CPT/HCPCS: 96365; J1335

== ENCOUNTER 2025-02-01 02:55 | Day surgery (SDC) | payer OTHER ==
[~2025-02-01 02:55] MED LIST changes: +Ertapenem Sodium 1,000 MG in NS 50 ML IV SCH
[2025-02-01 09:25] VITALS: BP 126/62
== END 2025-02-02 09:50 | disposition home or self-care (01) ==
LOC: ATC 02:55
DX: N39.0 Urinary tract infection, site not specified (principal); B96.1 Klebsiella pneumoniae [K. pneumoniae] as the cause of diseases classified elsewhere; Z16.12 Extended spectrum beta lactamase (ESBL) resistance; I12.9 Hypertensive chronic kidney disease with stage 1 through stage 4 chronic kidney disease, or unspecified chronic kidney disease; N18.31 Chronic kidney disease, stage 3a; N25.81 Secondary hyperparathyroidism of renal origin; D63.1 Anemia in chronic kidney disease; N40.0 Benign prostatic hyperplasia without lower urinary tract symptoms; Z79.02 Long term (current) use of antithrombotics/antiplatelets; Z79.899 Other long term (current) drug therapy; Z88.0 Allergy status to penicillin; Z88.5 Allergy status to narcotic agent
CPT/HCPCS: 96365; J1335

== ENCOUNTER 2025-02-02 08:00 | Day surgery (SDC) | payer OTHER ==
[2025-02-02 09:31] VITALS: BP 132/70
== END 2025-02-02 23:00 | disposition home or self-care (01) ==
LOC: ATC 08:00
DX: N39.0 Urinary tract infection, site not specified (principal); I12.9 Hypertensive chronic kidney disease with stage 1 through stage 4 chronic kidney disease, or unspecified chronic kidney disease; N18.1 Chronic kidney disease, stage 1; D63.1 Anemia in chronic kidney disease; N25.81 Secondary hyperparathyroidism of renal origin; Z79.899 Other long term (current) drug therapy; Z88.0 Allergy status to penicillin; Z88.5 Allergy status to narcotic agent
CPT/HCPCS: 96365; J1335

== ENCOUNTER 2025-02-03 01:51 | Day surgery (SDC) | payer OTHER ==
[2025-02-03 09:28] VITALS: BP 108/67
== END 2025-02-03 09:49 | disposition home or self-care (01) ==
LOC: ATC 01:51
DX: N39.0 Urinary tract infection, site not specified (principal); B96.1 Klebsiella pneumoniae [K. pneumoniae] as the cause of diseases classified elsewhere; Z16.12 Extended spectrum beta lactamase (ESBL) resistance; I12.9 Hypertensive chronic kidney disease with stage 1 through stage 4 chronic kidney disease, or unspecified chronic kidney disease; N18.31 Chronic kidney disease, stage 3a; N25.81 Secondary hyperparathyroidism of renal origin; D63.1 Anemia in chronic kidney disease; N40.0 Benign prostatic hyperplasia without lower urinary tract symptoms; Z79.899 Other long term (current) drug therapy; Z88.0 Allergy status to penicillin; Z88.5 Allergy status to narcotic agent
CPT/HCPCS: 96365; J1335

== ENCOUNTER → 2025-03-10 | Outpatient (CLI) | payer OTHER ==
[~2025-03-10] MED LIST changes: -Ertapenem Sodium 1,000 MG in NS 50 ML IV SCH
[2025-03-10 12:31] LABS: Bilirubin, Urine Neg (Neg); Glucose Qualitative, Urine Neg (Neg); Ketones, Urine Neg (Neg); Leukocyte Esterase, Urine 3+ (Neg); Protein, Urine 2+ (Neg); Specific Gravity, Urine 1.015 (1.003-1.022); Urobilinogen, Urine NORM (Normal)
[2025-03-10 12:51] LABS: Color, Urine Pale Yellow (P-Yellow); White Blood Cells, Urine 50-100 /hpf (0-5)
== END | disposition home or self-care (01) ==
LOC: LAB SHORT 10:20 → LAB 10:20 → LAB FUT 03-10 10:30
PROVIDERS: Internal Medicine Nephrology
DX: N18.30 Chronic kidney disease, stage 3 unspecified (principal); D63.1 Anemia in chronic kidney disease; N25.81 Secondary hyperparathyroidism of renal origin; E55.9 Vitamin D deficiency, unspecified; E78.00 Pure hypercholesterolemia, unspecified; G60.9 Hereditary and idiopathic neuropathy, unspecified; R76.9 Abnormal immunological finding in serum, unspecified; R94.5 Abnormal results of liver function studies
CPT/HCPCS: 81001; 87077; 87086; 87147; 87186

== ENCOUNTER 2025-05-11 14:59 | Inpatient (IN) | payer OTHER ==
[~2025-05-11] VITALS: Ht 175.3 cm; Wt 69.4 kg
[2025-05-11 15:26] LABS: BASOPHILS ABSOLUTE AUTO 0.02 K/mm3 (0.00-0.23); BASOPHILS PERCENT AUTO 0 % (0-2); EOSINOPHILS ABSOLUTE AUTO 0.11 K/mm3 (0.00-0.68); EOSINOPHILS PERCENT AUTO 2 % (0-6); Hematocrit 33.2 % (37.0-53.0); Hemoglobin 10.9 g/dL (13.5-17.5); IMMATURE GRAN ABSOLUTE AUTO 0.02 K/mm3 (0.00-0.10); IMMATURE GRAN PERCENT AUTO 0 % (0-1); LYMPHOCYTES ABSOLUTE AUTO 1.21 K/mm3 (0.84-5.20); LYMPHOCYTES PERCENT AUTO 26 % (21-46); MONOCYTES ABSOLUTE AUTO 0.38 K/mm3 (0.16-1.47); MONOCYTES PERCENT AUTO 8 % (4-13); Mean Corpuscular HGB Conc 32.8 g/dL (31.5-36.5); Mean Corpuscular Volume 99 fL (80-100); NEUTROPHILS ABSOLUTE AUTO 2.91 K/mm3 (1.96-9.15); NEUTROPHILS PERCENT AUTO 63 % (41-73); NRBC ABSOLUTE 0.00 K/mm3 (0.00-0.02); NRBC Auto 0.0 /100 WBC (0.0-0.2); Platelet Count 133 K/mm3 (150-400); RDW Coefficient Variation 14.3 % (11.7-14.2); RDW Standard Deviation 51.4 fL (35.1-46.3)
[2025-05-11] MEDS ORDERED: Morphine Sulfate 4 MG/1 ML Injection IV ONE (15:50)
[2025-05-11 15:53] LABS: Alanine Aminotransfer (ALT/SGP 18.0 U/L (12-78); Albumin, Blood 3.2 g/dL (3.4-5.0); Albumin/Globulin Ratio 0.9 (0.8-1.8); Anion Gap 8.0 mmol/L (3-11); Aspartate Aminotrans (AST/SGOT 16.0 U/L (12-37); Bilirubin, Total 0.8 mg/dL (0.1-1.0); Blood Urea Nitrogen 26.0 mg/dL (8-24); CO2, Blood 25.0 mmol/L (21-32); Calcium, Blood 8.9 mg/dL (8.5-10.1); Chloride, Blood 108.0 mmol/L (98-108); Creatinine, Blood 1.14 mg/dL (0.60-1.20); Globulin, Blood 3.5 g/dL (2.2-4.0); Glucose, Blood 115.0 mg/dL (70-99); Potassium, Blood 4.2 mmol/L (3.5-5.5); Sodium, Blood 137.0 mmol/L (136-145); Total Protein, Blood 6.7 g/dL (6.4-8.2)
[2025-05-11] MEDS ORDERED: HYDROmorphone HCl/Pf 1MG SYR IV ONE ×2 (16:15→18:05)
[2025-05-11] MEDS ORDERED: NS 1,000 ML IV SCH ×2 (17:40→21:00)
[2025-05-11 18:18] LABS: Source, Urine Clean Catch
[2025-05-11 18:36] LABS: Bilirubin, Urine Neg (Neg); Glucose Qualitative, Urine Neg (Neg); Ketones, Urine Neg (Neg); Leukocyte Esterase, Urine 3+ (Neg); Protein, Urine 3+ (Neg); Specific Gravity, Urine 1.015 (1.003-1.022); Urobilinogen, Urine NORM (Normal)
[2025-05-11 18:47] LABS: Color, Urine Pale Yellow (P-Yellow); White Blood Cells, Urine TNTC /hpf (0-5)
[2025-05-11] MEDS ORDERED: Meropenem 2,000 MG in NS 250 ML IV ONE (19:30)
[2025-05-11] MEDS ORDERED: FentaNYL Citrate 50 MCG/ML 2 ML Injection IV PRN (20:30)
[2025-05-11] MEDS ORDERED: Ondansetron HCl 2 MG / ML 2ML Vial IV PRN (20:35)
[2025-05-11] MEDS ORDERED: FLU VACC TS2025(65UP)/MF59C/PF 45 MCG/0.5 ML SYRINGE IM SCH (21:00)
[2025-05-11 22:02] VITALS: BP 136/73
[2025-05-11 23:31] VITALS: BP 135/68
[2025-05-12 03:33] VITALS: BP 120/68
[2025-05-12 06:20] LABS: BASOPHILS ABSOLUTE AUTO 0.01 K/mm3 (0.00-0.23); BASOPHILS PERCENT AUTO 0 % (0-2); EOSINOPHILS ABSOLUTE AUTO 0.14 K/mm3 (0.00-0.68); EOSINOPHILS PERCENT AUTO 3 % (0-6); Hematocrit 32.3 % (37.0-53.0); Hemoglobin 10.6 g/dL (13.5-17.5); IMMATURE GRAN ABSOLUTE AUTO 0.01 K/mm3 (0.00-0.10); IMMATURE GRAN PERCENT AUTO 0 % (0-1); LYMPHOCYTES ABSOLUTE AUTO 1.05 K/mm3 (0.84-5.20); LYMPHOCYTES PERCENT AUTO 24 % (21-46); MONOCYTES ABSOLUTE AUTO 0.42 K/mm3 (0.16-1.47); MONOCYTES PERCENT AUTO 10 % (4-13); Mean Corpuscular HGB Conc 32.8 g/dL (31.5-36.5); Mean Corpuscular Volume 99 fL (80-100); NEUTROPHILS ABSOLUTE AUTO 2.79 K/mm3 (1.96-9.15); NEUTROPHILS PERCENT AUTO 63 % (41-73); NRBC ABSOLUTE 0.00 K/mm3 (0.00-0.02); NRBC Auto 0.0 /100 WBC (0.0-0.2); Platelet Count 117 K/mm3 (150-400); RDW Coefficient Variation 14.0 % (11.7-14.2); RDW Standard Deviation 50.9 fL (35.1-46.3)
--- NOTE | 2025-05-12 06:27 | NUR ---
SHIFT SUMMARY PT A&OX4 AND ANSWERS QUESTIONS APPROPRIATELY. PT CAME TO FLOOR FOR L FLANK PAIN. IMAGING SHOWS UNKNOWN MASS AT THIS TIME. PT VSS, NO COMPLAINTS OF CP/PRESSURE OR SOB. PUREWICK IN PLACE. PT SPENT MOST OF SHIFT IN BED WITH EYES CLOSED AND RESPIRATIONS EVEN AND UNLABORED. MEDICATED PER EMAR FOR PAIN. NO ACUTE EVENTS DURING SHIFT. PT LEFT IN A POSITION OF SAFETY WITH FALL PRECAUTIONS IN PLACE AND CALL LIGHT IN REACH.
[2025-05-12 06:54] LABS: Alanine Aminotransfer (ALT/SGP 17.0 U/L (12-78); Albumin, Blood 2.9 g/dL (3.4-5.0); Albumin/Globulin Ratio 1.0 (0.8-1.8); Anion Gap 8.0 mmol/L (3-11); Aspartate Aminotrans (AST/SGOT 11.0 U/L (12-37); Bilirubin, Total 1.0 mg/dL (0.1-1.0); Blood Urea Nitrogen 23.0 mg/dL (8-24); CO2, Blood 26.0 mmol/L (21-32); Calcium, Blood 8.8 mg/dL (8.5-10.1); Chloride, Blood 110.0 mmol/L (98-108); Creatinine, Blood 1.19 mg/dL (0.60-1.20); Globulin, Blood 3.0 g/dL (2.2-4.0); Glucose, Blood 78.0 mg/dL (70-99); Potassium, Blood 3.9 mmol/L (3.5-5.5); Sodium, Blood 140.0 mmol/L (136-145); Total Protein, Blood 5.9 g/dL (6.4-8.2)
[2025-05-12] MEDS ORDERED: Insulin Human Lispro 100 Units/ML 3ML Syringe SC SCH (07:30)
[2025-05-12 07:33] VITALS: BP 135/67
[2025-05-12] MEDS ORDERED: Lactobacil 2-S.Thermo-Bifido 1 1 Cap PO SCH (09:00)
[2025-05-12] MEDS ORDERED: Enoxaparin 40 MG/0.4 ML SYR SC SCH (10:00)
--- NOTE | 2025-05-12 10:09 | NUR ---
ORDER RECIEVED AND PROCESSED. PATIENT HAS A POLST ON FILE THAT SAYS DNR, REVIEWED WITH PATIENT WHO AGREED THAT THIS STILL REFLECTED HIS WISHES. PATIENTS CODE STATUS CHANGED IN THE COMPUTER. UPDATED BSRN.
--- NOTE | 2025-05-12 10:49 | NUR ---
CODE STATUS CHANGED TO DNR. ERLINDA ARCHER PLACED & VERIFIED WITH SHAUN OLGUIN RN.
[2025-05-12 11:16] VITALS: BP 135/66
--- NOTE | 2025-05-12 11:50 | NUR ---
CALLED AND SPOKE WITH DR. BLANCAS IN REGARDS TO PT HAVING 2 2 SECOND PAUSES IN THE LAST 20 MINUTES. NO NEW ORDERS AT THIS TIME.
--- NOTE | 2025-05-12 12:28 | NUR ---
BRADYCARDIA DR. CORRIGAN NOTIFIED THAT PT HAS BEEN TRENDING INTO THE 50S. PT HR TOUCHED 39 ONCE FOR A SECOND PER MOLD CLEANER. PT IS ASYMPTOMATIC. SLEEPING, BUT EASILY AROUSABLE.
[2025-05-12 15:10] VITALS: BP 135/68
--- NOTE | 2025-05-12 16:16 | NUR ---
ASSISTED PT TO BATHROOM USING A W/C DUE TO PTS INSISTANCE HE CANNOT DIGITALLY REMOVED STOOL FROM HIS RECTUM ON THE BSC. PT ABLE TO TRANSFER HIMSELF WITH MINIMAL ASSISTANCE BUT LEGS ATTEMPTED TO BUCKLE WHILE TRANSFERRING TO TOILET. HAD 3 FLECKS OF STOOL IN TOILET WHEN HE WENT BACK TO W/C. STATES HE FELT HE HAD DIARRHEA. NOTIFIED PRIMARY RN WHEN RETURNED FROM BREAK.
--- NOTE | 2025-05-12 16:48 | NUR ---
SHIFT SUMMARY PT 1P ASSIST TO WHEELCHAIR AND THEN FROM WHEELCHAIR TO TOILET. PT HAVING SMALL HARD STOOLS, [place] ENCOURAGED TO TRY PRUNE JUICE OR A STOOL SOFTENER AND REFUSED EACH. PT STATES THIS IS NORMAL BMS FOR HIM. TELE IN PLACE. SINUS MIRI T/O SHIFT. PT HR DECREASED TO THE 50S AND SUSTAINED. EKG OBTAINED PER ORDER BY DR. CORRIGAN. PT HAD NO SYPMTOMS OF BRADYCARDIA T/O SHIFT. PHYSICAL THERAPY ORDER PLACED TODAY. NS RUNNING AT 75 ML/HR X1 LITER ORDERED. INFLATABLE WAFFLE OVERLAY PLACED TO BED FOR COMFORT. NO OTHER ACUTE CHANGES IN ASSESSMENT AT THIS TIME. VS REVIEWED. CALL LIGHT IN REACH.
[2025-05-12 20:21] VITALS: BP 142/71
[2025-05-13 00:22] VITALS: BP 119/64
[2025-05-13 04:11] VITALS: BP 139/70
--- NOTE | 2025-05-13 06:14 | NUR ---
SHIFT SUMMARY PT A&OX4 AND ANSWERS QUESTIONS APPROPRIATELY. PT RECEIVED SCHEDULED AND PRN MEDICATIONS. PT HAS PUREWIK IN PLACE AND FUNCTIONING ADEQUATELY. VSS, NO COMPLAINTS OF CP/PRESSURE OR SOB. PT SPENT MOST OF SHIFT IN BED WITH EYES CLOSED AND RESPIRATIONS EVEN AND UNLABORED. NO ACUTE EVENTS AT THIS TIME. PT ON CONTACT PRECAUTIONS FOR HX OF MRSA. PT LEFT IN A POSITION OF SAFETY WITH FALL PRECAUTIONS IN PLACE AND CALL LIGHT IN REACH.
[2025-05-13 06:36] LABS: BASOPHILS ABSOLUTE AUTO 0.01 K/mm3 (0.00-0.23); BASOPHILS PERCENT AUTO 0 % (0-2); EOSINOPHILS ABSOLUTE AUTO 0.14 K/mm3 (0.00-0.68); EOSINOPHILS PERCENT AUTO 4 % (0-6); Hematocrit 31.1 % (37.0-53.0); Hemoglobin 10.2 g/dL (13.5-17.5); IMMATURE GRAN ABSOLUTE AUTO 0.00 K/mm3 (0.00-0.10); IMMATURE GRAN PERCENT AUTO 0 % (0-1); LYMPHOCYTES ABSOLUTE AUTO 0.93 K/mm3 (0.84-5.20); LYMPHOCYTES PERCENT AUTO 26 % (21-46); MONOCYTES ABSOLUTE AUTO 0.37 K/mm3 (0.16-1.47); MONOCYTES PERCENT AUTO 10 % (4-13); Mean Corpuscular HGB Conc 32.8 g/dL (31.5-36.5); Mean Corpuscular Volume 97 fL (80-100); NEUTROPHILS ABSOLUTE AUTO 2.18 K/mm3 (1.96-9.15); NEUTROPHILS PERCENT AUTO 60 % (41-73); NRBC ABSOLUTE 0.00 K/mm3 (0.00-0.02); NRBC Auto 0.0 /100 WBC (0.0-0.2); Platelet Count 116 K/mm3 (150-400); RDW Coefficient Variation 14.1 % (11.7-14.2); RDW Standard Deviation 50.2 fL (35.1-46.3)
[2025-05-13 06:50] LABS: Anion Gap 8.0 mmol/L (3-11); Blood Urea Nitrogen 19.0 mg/dL (8-24); CO2, Blood 24.0 mmol/L (21-32); Calcium, Blood 8.6 mg/dL (8.5-10.1); Chloride, Blood 111.0 mmol/L (98-108); Creatinine, Blood 1.18 mg/dL (0.60-1.20); Glucose, Blood 83.0 mg/dL (70-99); Potassium, Blood 3.8 mmol/L (3.5-5.5); Sodium, Blood 139.0 mmol/L (136-145)
[2025-05-13 08:00] VITALS: BP 140/81
[2025-05-13 12:01] VITALS: BP 133/62
[2025-05-13] MEDS ORDERED: VISBIOME 112.51 EACH PO (12:53)
[2025-05-13] MEDS ORDERED: SULTRIDS PO (12:55)
--- NOTE | 2025-05-13 14:25 | NUR ---
DISCHARGE PT AOX4, COOPERATIVE, ABLE TO MAKE NEEDS KNOWN. PT IS 2 PERSON ASSIST TO BATHROOM FOR VOIDING. WAS ON PURE WICK FOR PERIOD OF TIME, STAFF DC'D. ON ROOM AIR, TOLERATING MEDICATIONS. THIS RN WENT OVER DC PAPERWORK WITH PT. MEDS FAXED TO [facility]. MOTOR POOL DRIVER DC'D IV, AND TELE. MOTOR POOL DRIVER TRANSPORTED PT DOWN TO PT ENTRANCE VIA WC WITH LITTLE ISSUE.
== END 2025-05-13 14:18 | disposition home health service (06) | DRG 690 ==
LOC: ER 14:59 → ERHOLD 19:50 → MEDS 19:50
PROVIDERS: Emergency Medicine; ADMIT Internal Medicine
DX: N10 Acute pyelonephritis (principal); I13.0 Hypertensive heart and chronic kidney disease with heart failure and stage 1 through stage 4 chronic kidney disease, or unspecified chronic kidney disease; I50.32 Chronic diastolic (congestive) heart failure; Z16.12 Extended spectrum beta lactamase (ESBL) resistance; Z16.11 Resistance to penicillins; N13.6 Pyonephrosis; I48.91 Unspecified atrial fibrillation; D50.9 Iron deficiency anemia, unspecified; I48.0 Paroxysmal atrial fibrillation; E11.22 Type 2 diabetes mellitus with diabetic chronic kidney disease; G47.33 Obstructive sleep apnea (adult) (pediatric); Z66 Do not resuscitate; F32.A Depression, unspecified; M10.9 Gout, unspecified; N40.0 Benign prostatic hyperplasia without lower urinary tract symptoms; E11.40 Type 2 diabetes mellitus with diabetic neuropathy, unspecified; G89.29 Other chronic pain; D63.1 Anemia in chronic kidney disease; I25.10 Atherosclerotic heart disease of native coronary artery without angina pectoris; N18.31 Chronic kidney disease, stage 3a; R31.0 Gross hematuria; Z98.890 Other specified postprocedural states; Z87.39 Personal history of other diseases of the musculoskeletal system and connective tissue; Z87.19 Personal history of other diseases of the digestive system; Z95.5 Presence of coronary angioplasty implant and graft; Z88.5 Allergy status to narcotic agent; Z88.0 Allergy status to penicillin; Z87.442 Personal history of urinary calculi; Z79.899 Other long term (current) drug therapy; Z79.82 Long term (current) use of aspirin; Z90.89 Acquired absence of other organs; Z93.6 Other artificial openings of urinary tract status; Z86.19 Personal history of other infectious and parasitic diseases; Z87.891 Personal history of nicotine dependence; Z98.49 Cataract extraction status, unspecified eye; Z79.02 Long term (current) use of antithrombotics/antiplatelets
CPT/HCPCS: 36415; 74176; 80048; 80053; 81001; 82947; 83880; 85025; 87077; 87086; 87186; 96374; 96375; 96376; 97110; 97162; 99285-25; A9270; J1171; J1650; J2185; J2270; J3010; J7030; J7050

== ENCOUNTER 2025-05-21 16:23 | Observation (INO) | payer OTHER ==
[~2025-05-21] VITALS: Ht 177.8 cm; Wt 68.4 kg
[~2025-05-21 16:23] MED LIST changes: +SULTRIDS PO
[2025-05-21 17:20] LABS: BASOPHILS ABSOLUTE AUTO 0.02 K/mm3 (0.00-0.23); BASOPHILS PERCENT AUTO 0 % (0-2); EOSINOPHILS ABSOLUTE AUTO 0.16 K/mm3 (0.00-0.68); EOSINOPHILS PERCENT AUTO 4 % (0-6); Hematocrit 31.7 % (37.0-53.0); Hemoglobin 10.6 g/dL (13.5-17.5); IMMATURE GRAN ABSOLUTE AUTO 0.01 K/mm3 (0.00-0.10); IMMATURE GRAN PERCENT AUTO 0 % (0-1); LYMPHOCYTES ABSOLUTE AUTO 1.18 K/mm3 (0.84-5.20); LYMPHOCYTES PERCENT AUTO 26 % (21-46); MONOCYTES ABSOLUTE AUTO 0.36 K/mm3 (0.16-1.47); MONOCYTES PERCENT AUTO 8 % (4-13); Mean Corpuscular HGB Conc 33.4 g/dL (31.5-36.5); Mean Corpuscular Volume 97 fL (80-100); NEUTROPHILS ABSOLUTE AUTO 2.88 K/mm3 (1.96-9.15); NEUTROPHILS PERCENT AUTO 63 % (41-73); NRBC ABSOLUTE 0.00 K/mm3 (0.00-0.02); NRBC Auto 0.0 /100 WBC (0.0-0.2); Platelet Count 149 K/mm3 (150-400); RDW Coefficient Variation 14.0 % (11.7-14.2); RDW Standard Deviation 49.7 fL (35.1-46.3)
[2025-05-21] MEDS ORDERED: Morphine Sulfate 4 MG/1 ML Injection IV ONE ×2 (17:25→18:45)
[2025-05-21] MEDS ORDERED: NS 500 ML IV SCH (17:25)
[2025-05-21 18:10] LABS: Alanine Aminotransfer (ALT/SGP 39.0 U/L (12-78); Albumin, Blood 3.5 g/dL (3.4-5.0); Albumin/Globulin Ratio 1.1 (0.8-1.8); Anion Gap 7.0 mmol/L (3-11); Aspartate Aminotrans (AST/SGOT 29.0 U/L (12-37); Bilirubin, Total 0.5 mg/dL (0.1-1.0); Blood Urea Nitrogen 27.0 mg/dL (8-24); CO2, Blood 26.0 mmol/L (21-32); Calcium, Blood 9.2 mg/dL (8.5-10.1); Chloride, Blood 107.0 mmol/L (98-108); Creatinine, Blood 1.76 mg/dL (0.60-1.20); Globulin, Blood 3.2 g/dL (2.2-4.0); Glucose, Blood 84.0 mg/dL (70-99); Magnesium, Blood 2.1 mg/dL (1.6-2.4); Potassium, Blood 5.3 mmol/L (3.5-5.5); Sodium, Blood 135.0 mmol/L (136-145); Total Protein, Blood 6.7 g/dL (6.4-8.2)
[2025-05-21 19:19] LABS: Bilirubin, Urine Neg (Neg); Glucose Qualitative, Urine Neg (Neg); Ketones, Urine Neg (Neg); Leukocyte Esterase, Urine 3+ (Neg); Protein, Urine 2+ (Neg); Specific Gravity, Urine 1.010 (1.003-1.022); Urobilinogen, Urine NORM (Normal)
[2025-05-21 19:27] LABS: Color, Urine Pale Yellow (P-Yellow)
[2025-05-21 19:28] LABS: White Blood Cells, Urine TNTC /hpf (0-5)
[2025-05-21] MEDS ORDERED: HYDROmorphone HCl/Pf 1MG SYR IV PRN (20:00)
[2025-05-21] MEDS ORDERED: FentaNYL Citrate 50 MCG/ML 2 ML Injection IV PRN ×2 (20:00→23:20)
[2025-05-21] MEDS ORDERED: FLU VACC TS2025(65UP)/MF59C/PF 45 MCG/0.5 ML SYRINGE IM SCH (20:05)
[2025-05-21] MEDS ORDERED: NS 1,000 ML IV SCH (21:25)
[2025-05-21 21:53] VITALS: BP 144/68
[2025-05-22 04:01] VITALS: BP 136/72
[2025-05-22 05:14] LABS: BASOPHILS ABSOLUTE AUTO 0.03 K/mm3 (0.00-0.23); BASOPHILS PERCENT AUTO 1 % (0-2); EOSINOPHILS ABSOLUTE AUTO 0.14 K/mm3 (0.00-0.68); EOSINOPHILS PERCENT AUTO 3 % (0-6); Hematocrit 31.9 % (37.0-53.0); Hemoglobin 10.6 g/dL (13.5-17.5); IMMATURE GRAN ABSOLUTE AUTO 0.01 K/mm3 (0.00-0.10); IMMATURE GRAN PERCENT AUTO 0 % (0-1); LYMPHOCYTES ABSOLUTE AUTO 1.40 K/mm3 (0.84-5.20); LYMPHOCYTES PERCENT AUTO 32 % (21-46); MONOCYTES ABSOLUTE AUTO 0.37 K/mm3 (0.16-1.47); MONOCYTES PERCENT AUTO 8 % (4-13); Mean Corpuscular HGB Conc 33.2 g/dL (31.5-36.5); Mean Corpuscular Volume 98 fL (80-100); NEUTROPHILS ABSOLUTE AUTO 2.44 K/mm3 (1.96-9.15); NEUTROPHILS PERCENT AUTO 56 % (41-73); NRBC ABSOLUTE 0.00 K/mm3 (0.00-0.02); NRBC Auto 0.0 /100 WBC (0.0-0.2); Platelet Count 123 K/mm3 (150-400); RDW Coefficient Variation 14.1 % (11.7-14.2); RDW Standard Deviation 50.4 fL (35.1-46.3)
[2025-05-22 05:43] LABS: Alanine Aminotransfer (ALT/SGP 33.0 U/L (12-78); Albumin, Blood 3.4 g/dL (3.4-5.0); Albumin/Globulin Ratio 1.3 (0.8-1.8); Anion Gap 7.0 mmol/L (3-11); Aspartate Aminotrans (AST/SGOT 24.0 U/L (12-37); Bilirubin, Total 0.7 mg/dL (0.1-1.0); Blood Urea Nitrogen 26.0 mg/dL (8-24); CO2, Blood 27.0 mmol/L (21-32); Calcium, Blood 8.8 mg/dL (8.5-10.1); Chloride, Blood 107.0 mmol/L (98-108); Creatinine, Blood 1.59 mg/dL (0.60-1.20); Globulin, Blood 2.7 g/dL (2.2-4.0); Glucose, Blood 74.0 mg/dL (70-99); Potassium, Blood 4.9 mmol/L (3.5-5.5); Sodium, Blood 136.0 mmol/L (136-145); Total Protein, Blood 6.1 g/dL (6.4-8.2)
--- NOTE | 2025-05-22 07:21 | NUR ---
SHIFT SUMMARY PATIENT ALERT AND ORIENTED X4. PATIENT PLEASANT AND COOPERATIVE WITH CARE. MAKE NEEDS KNOWN. PATIENT COMPLAINT OF PAIN , MEDICATED PER EMAR. DENIES PAIN, SOB, AND CHEST PAIN. PATIENT IS ON WHEELCHAIR AT BASELINE. INFUSING NORMAL SALINE AT 125ML/HR. SELF REPOSITIONING THROUGHOUT SHIFT, BED LOCKED AND IN LOWEST POSITION. CALL LIGHT WITHIN REACH.
[2025-05-22] MEDS ORDERED: Insulin Human Lispro 100 Units/ML 3ML Syringe SC SCH (07:30)
[2025-05-22 07:51] VITALS: BP 160/79
[2025-05-22] MEDS ORDERED: Enoxaparin 30 MG/0.3 ML SYR SC SCH ×2 (09:00→11:00)
[2025-05-22] MEDS ORDERED: Enoxaparin 40 MG/0.4 ML SYR SC SCH ×2 (09:00→10:00)
[2025-05-22] MEDS ORDERED: Dextrose 50% 50 ML Vial IV PRN (10:35)
[2025-05-22] MEDS ORDERED: NS 1,000 ML IV SCH (13:00)
[2025-05-22 15:53] VITALS: BP 138/66
--- NOTE | 2025-05-22 17:26 | NUR ---
PT AWAKE AND ORIENTED TO SELF,PLACE AND TIME, HAS CAREGIVER FROM HOME AT [facility] VISITING WITH HIM AT THIS TIME, PER CAREGIVER PT HAS HER COME AND HELP FOR 2-3 HRS IN THE AM AND ANOTHER CAREGIVER COME FOR 2 HRS IN THE EVENINGS. PT CURRENTLY DENIES PAIN,N/V OR SOB, VITALS WNL, WITH NS 0.9% INFUSING AT 125ML/HR PER DOCTORS ORDERS, WILL CONTINUE TO MONITOR.
--- NOTE | 2025-05-22 18:20 | NUR ---
CLEARLY MAKES NEED FELICIA, CALL LIGHT WITH IN REACH, STARTED ON IV ANTIBIOTICS, MEDICATED FOR PAIN, BETITO VISITED AND FINISHED MED REC, CALL LIGHT WITH IN REACH, WILL RELAY TO PM CARL
[2025-05-22 19:21] VITALS: BP 136/73
[2025-05-23 05:12] LABS: BASOPHILS ABSOLUTE AUTO 0.02 K/mm3 (0.00-0.23); BASOPHILS PERCENT AUTO 0 % (0-2); EOSINOPHILS ABSOLUTE AUTO 0.19 K/mm3 (0.00-0.68); EOSINOPHILS PERCENT AUTO 4 % (0-6); Hematocrit 32.1 % (37.0-53.0); Hemoglobin 10.5 g/dL (13.5-17.5); IMMATURE GRAN ABSOLUTE AUTO 0.01 K/mm3 (0.00-0.10); IMMATURE GRAN PERCENT AUTO 0 % (0-1); LYMPHOCYTES ABSOLUTE AUTO 1.17 K/mm3 (0.84-5.20); LYMPHOCYTES PERCENT AUTO 25 % (21-46); MONOCYTES ABSOLUTE AUTO 0.42 K/mm3 (0.16-1.47); MONOCYTES PERCENT AUTO 9 % (4-13); Mean Corpuscular HGB Conc 32.7 g/dL (31.5-36.5); Mean Corpuscular Volume 98 fL (80-100); NEUTROPHILS ABSOLUTE AUTO 2.93 K/mm3 (1.96-9.15); NEUTROPHILS PERCENT AUTO 62 % (41-73); NRBC ABSOLUTE 0.00 K/mm3 (0.00-0.02); NRBC Auto 0.0 /100 WBC (0.0-0.2); Platelet Count 135 K/mm3 (150-400); RDW Coefficient Variation 13.9 % (11.7-14.2); RDW Standard Deviation 50.2 fL (35.1-46.3)
[2025-05-23 05:55] LABS: Albumin, Blood 3.1 g/dL (3.4-5.0); Anion Gap 9 mmol/L (3-11); Blood Urea Nitrogen 18 mg/dL (8-24); CO2, Blood 23 mmol/L (21-32); Calcium, Blood 8.8 mg/dL (8.5-10.1); Chloride, Blood 112 mmol/L (98-108); Creatinine, Blood 1.47 mg/dL (0.60-1.20); Glucose, Blood 68 mg/dL (70-99); Phosphorus, Blood 2.9 mg/dL (2.5-4.9); Potassium, Blood 4.8 mmol/L (3.5-5.5); Sodium, Blood 139 mmol/L (136-145)
--- NOTE | 2025-05-23 06:10 | NUR ---
SHIFT SUMMARY; PT A/OX4, SBA W/ TRANSFERRING TO WHEELCHAIR, OTHERWISE CHAIRFAST. PT HAS CONTINUED PAIN IN L FLANK RATED AT 3/10 ON THE 0-10 PAIN SCALE, HOWEVER PT STATES W/O PAIN MEDICATION, PAIN INCREASES TO 8. PT MEDICATED PER EMAR. PT HAS HAD SOME URINE OUTPUT, SEE PERSONAL CARE NOTES. URINE CX IS IN PRELIMINARY STATUS. VSS. CALL LIGHT WITHIN REACH AND BED IN LOWEST POSITION.
[2025-05-23 07:47] VITALS: BP 143/70
[2025-05-23] MEDS ORDERED: Cholecalciferol 1000 Unit Tablet (=25MCG) PO SCH (09:00)
--- NOTE | 2025-05-23 09:00 | NUR ---
Pt laying in bed awake, a/ox4, pleasant and cooperative with care, follows commands well, denies pain at this time, lungs are clear t/o, resp even and unlabored, no cough noted, on r/a, hrr, distant sounds, no edema noted, ppp+1, cap refill< 3 sec, vs stable, afebrile, piv to lfa site is clear and patent, btx4, abd flat soft nontender, voids via purwick at this time, skin c/w/d, frances cerda, call light in reach.
[2025-05-23] MEDS ORDERED: ALLO100 PO (12:20)
[2025-05-23] MEDS ORDERED: OXAYDO5 M1 PO (12:26)
--- NOTE | 2025-05-23 13:20 | NUR ---
Pt has been discharged to home, new meds faxed to [facility], has hard copy for roxicodone in his discharge pkt, went over discharge instructions with him, he verbalized understanding, piv removed intact, daughter here to take him home, left via wheelchair with daughter in attendence and all belongings.
== END 2025-05-23 13:10 | disposition home or self-care (01) ==
LOC: ER 16:23 → ERHOLD 16:24 → MEDS 16:24 → ENPENDDIS 05-23 11:43 → MEDS 05-23 13:10
PROVIDERS: Emergency Medicine; Student in an Organized Health Care Education/Training Program; ADMIT Family Medicine
DX: N17.9 Acute kidney failure, unspecified (principal); N28.89 Other specified disorders of kidney and ureter; N39.0 Urinary tract infection, site not specified; I48.0 Paroxysmal atrial fibrillation; I25.10 Atherosclerotic heart disease of native coronary artery without angina pectoris; I13.0 Hypertensive heart and chronic kidney disease with heart failure and stage 1 through stage 4 chronic kidney disease, or unspecified chronic kidney disease; E11.22 Type 2 diabetes mellitus with diabetic chronic kidney disease; N18.32 Chronic kidney disease, stage 3b; I50.30 Unspecified diastolic (congestive) heart failure; D64.9 Anemia, unspecified; M10.9 Gout, unspecified; E11.649 Type 2 diabetes mellitus with hypoglycemia without coma; E11.49 Type 2 diabetes mellitus with other diabetic neurological complication; G47.30 Sleep apnea, unspecified; Z66 Do not resuscitate; Z88.0 Allergy status to penicillin; Z88.5 Allergy status to narcotic agent; Z79.82 Long term (current) use of aspirin; Z79.899 Other long term (current) drug therapy; Z87.891 Personal history of nicotine dependence
CPT/HCPCS: 36415; 74177; 80053; 80069; 81001; 82570; 82947; 83690; 83735; 84300; 85025; 87077; 87086; 87186; 93005; 93010; 96372; 96374; 96375; 96376; 99285-25; A9270; G0378; J1171; J1650; J2185; J2270; J3010; J7030; Q9967